=== PATIENT | male | born 1945 | race Caucasian/White ===

== ENCOUNTER → 2022-11-03 10:26 | Outpatient (REF) | payer OTHER, SELFPAY | LOC: WOUND 10:26 | PROVIDERS: ATTENDING PHYSICIAN Surgery; REFERRING PHYSICIAN Nurse Practitioner Family | DX: S51.802A Unspecified open wound of left forearm, initial encounter (principal); S51.801A Unspecified open wound of right forearm, initial encounter; X58.XXXA Exposure to other specified factors, initial encounter; J43.2 Centrilobular emphysema; I27.20 Pulmonary hypertension, unspecified | CPT/HCPCS: 11042; 99202; 99214 ==

== ENCOUNTER → 2023-08-14 09:38 | Outpatient (REF) | payer OTHER, SELFPAY | LOC: HWRCS 09:38 | PROVIDERS: ATTENDING PHYSICIAN Internal Medicine Critical Care Medicine; FAMILY PHYSICIAN Nurse Practitioner Family | DX: R06.02 Shortness of breath (principal) | CPT/HCPCS: 93306 ==

== ENCOUNTER → 2024-01-26 10:04 | Outpatient (REF) | payer OTHER, SELFPAY | LOC: HWRAD 10:04 | PROVIDERS: ATTENDING PHYSICIAN Physician Assistant Medical; FAMILY PHYSICIAN Nurse Practitioner Family | DX: C64.1 Malignant neoplasm of right kidney, except renal pelvis (principal) | CPT/HCPCS: 76775 ==

== ENCOUNTER 2024-07-29 20:15 | Emergency (ER) | payer OTHER, SELFPAY ==
[2024-07-29 20:18] VITALS: BP 135/72
[2024-07-29 20:28] VITALS: BMI 29.9
--- NOTE | 2024-07-29 20:48 | ED.GENMED ---
History of Present Illness
General
Chief Complaint: Male Genito-Urinary Symptoms
Source: patient
Exam Limitations: none
Time Seen by Provider: 07/29/24 20:19
Nursing documentation reviewed up to this point in time: agreed with
History of Present Illness
History of Present Illness:
78-year-old male with past medical history of COPD chronically on 6 L nasal cannula,, previous bladder cancer in the 90s presenting to the emergency department today with concerns of hematuria over the past few hours. Denies significant discomfort
no additional symptoms otherwise. No significant infectious symptoms recently.
Past History
Past History
ED Past Medical History: COPD; Negative CAD, Cancer, CHF, IDDM or NIDDM
ED Past Surgical History: Other (Hernia repair); Negative Cardiac or Cholecystectomy
Social History
Tobacco: Former smoker
Alcohol: None
Drug: None
Personal:
Living: with family
Employment: Employed
Family History
Family History: Other (Noncontributory)
Review of Systems
Review of Systems
Allergies reviewed?: Yes
All Other Systems: ROS reviewed and negative except as documented in HPI and ROS
Phy Exam
Physical Exam
Physical Exam:
GENERAL: Alert , in no apparent distress
EYE: pupils equal and reactive
NECK: Supple, no significant adenopathy.
ENT: o/p clr, mmm.
CARDIAC: Regular rate and rhythm .
LUNGS: Clear breath sounds bilaterally, no acute respiratory distress, no wheezes/rales/rhonchi
ABDOMEN: Soft, without focal tenderness, no r/g, no cvat
NEUROLOGICAL: Alert and oriented, no focal neuro deficits
SKIN: Warm and dry, skin intact.
MUSCULOSKELETAL: No edema, well perfused.
PSYCH: Normal and appropriate interaction.
Course
Orders/Labs/Results
Orders:
Orders
07/29/24 20:37
Bladder Scan- Treatment ONCE
07/29/24 21:10
BMP [Basic Metabolic Panel] Urgent
CBC/With Diff [Complete Blood Count/With Diff] Urgent
Urinalysis Reflex To Culture Urgent
Date Specimen was Collected: 07/29/24
Time Specimen was Collected: 21:03
Urine Microscopic Reflex Cult Urgent
Urine Culture Urgent
ALBA Source: U
Specimen Description:
Date Specimen was Collected: 07/29/24
Time Specimen was Collected: 21:03
07/29/24 22:03
Cephalexin Monohydrate [Keflex] 500 mg PO NOW STA
Abnormal Lab Results
07/29/24
21:10
RBC 4.11 L 10^6/uL
(4.70-6.10)
MCV 106.1 H fL
(80.0-94.0)
MCH 31.9 H pg
(27.0-31.0)
MCHC 30.0 L g/dL
(33.0-37.0)
Absolute Neuts (auto) 7.0 H 10^3/uL
(1.4-6.5)
Absolute Lymphs (auto) 1.0 L 10^3/uL
(1.2-3.4)
Neutrophils % 78.5 H %
(42.2-75.2)
Lymphocytes % 11.1 L %
(20.5-51.1)
Potassium 5.2 H mmol/L
(3.5-5.1)
Chloride 92 L mmol/L
(98-107)
Carbon Dioxide 41 H mmol/L
(22-30)
BUN 29 H mg/dl
(9-20)
Glucose 106 H mg/dl
(70-99)
Urine Ketones 1+ A
(Negative)
Ur Occult Blood Reflex 4+ A
(Negative)
Urine Nitrite (Reflex) Positive A
(Negative)
Urine Bilirubin 1+ A
(Negative)
Leukocyte Esterase Rfl 3+ A
(Negative)
Urine RBC >100 A /HPF
(0-2)
Urine WBC (Reflex) >100 A /HPF
(0-5)
Urine Bacteria (Reflex) Moderate A
(Negative)
Urine Albumin (Reflex) 4+ A
(Neg - Trace)
07/29/24 21:10
07/29/24 21:10
Vital Signs
Initial and Last Documented VS:
Initial Vital Signs
Temp Pulse Resp BP Pulse Ox
98.4 F 78 18 135/72 96
07/29/24 20:18 07/29/24 20:18 07/29/24 20:18 07/29/24 20:18 07/29/24 20:18
Last Documented Vital Signs
Temp Pulse Resp BP Pulse Ox
98.4 F 75 21 122/68 96
07/29/24 20:18 07/29/24 22:00 07/29/24 22:00 07/29/24 22:00 07/29/24 20:18
MDM/Problems Addressed
MDM/Problems Addressed:
78-year-old male presenting to the emergency department today with concerns of hematuria over the past few hours. On arrival here vital signs are normal patient no distress no abdominal pain no reproducible pain. Able to urinate. Urinalysis
potentially consistent with urinary tract infection with positive nitrites leukocyte esterase greater than 100 white blood cells with moderate bacteria. This is potentially explaining patient's hematuria. Plan for treatment with antibiotic and
otherwise close urology follow-up for further assessment . Return precautions given.
*Critical Care Note
Total Time (30-74mins, 75-104mins- exclusive of procedures): Not Applicable
ED Attending Note
-
Portions of this chart may have been created with voice recognition software.� Occasional wrong word or��sound alike� substitutions may have occurred due to the inherent limitations of voice recognition software.
Discharge Plan
Departure
Patient Disposition: Home (Routine Discharge)
Date of Disposition: 07/29/24
Time of Disposition: 22:16
Patient with high blood pressure during this ER visit?: No
Condition: Good
Covid-19: Not Applicable
Discharge Problem:
Acute UTI
Instructions: Blood in the Urine (Hematuria), Adult (DC)
Prescriptions:
No Action
tiotropium bromide [Spiriva with HandiHaler] 18 MCG capsule, w/inhalation device
2 puff inhalation DAILY
budesonide-formoterol [Symbicort] 1 PUFF HFA aerosol inhaler
2 puff inhalation R BID
albuterol sulfate 18 GM HFA aerosol inhaler
8.5 puff PO PRN PRN (Reason: SHORTNESS OF BREATH)
Lotemax 5 ML Drop
5 ml DROP 10/D
Prolensa 5 ML Drop
5 drp intraocular 10/D
ofloxacin 1 DROP drops
1 drp
prednisone 50 mg tablet
50 mg PO DAILY Qty: 2 0RF
Referrals:
Enio Nieto CRNP [Family Provider] -
Lan Araujo MD [Active] - Follow up in 5-7 days
Activity Restrictions/Additional Instructions:
You came to the emergency department today with concerns of hematuria. You may have a UTI. Please take the prescribed antibiotic and follow-up closely with urology. Return for any worsening, new or concerning symptoms.
Interventions
Interventions:
*Risk Screen - Suicide Last Done: 07/29/24 20:25
*General Assessment Last Done: 07/29/24 20:25
*Neglect/Abuse Screening Last Done: 07/29/24 20:25
*ED- Fall Risk Assessment Last Done: 07/29/24 20:25
*ED COVID-19 Vaccine History Last Done: 07/29/24 20:25
ED-Male Genitourinary Assessment Last Done: 07/29/24 20:29
Discharge Date and Time
Print Language: ECUADOREAN
[2024-07-29 21:00] VITALS: BP 145/88
[2024-07-29 21:19] LABS: % Basophils 0.4 % (0-2); % Eosinophils 2.5 % (0-6); % Immature Granulocytes 0.3 % (0-0.5); % Lymphocytes 11.1 % (20.5-51.1); % Monocytes 7.2 % (1.7-9.3); % Neutrophils 78.5 % (42.2-75.2); Absolute Eosinophils 0.2 10^3/uL (0-0.7); Absolute Monocytes 0.6 10^3/uL (0.1-0.6); Hematocrit 43.6 % (39.0-52.0); Hemoglobin 13.1 g/dL (13.0-18.0); Mean Corpuscular Hgb 31.9 pg (27.0-31.0); Mean Corpuscular Volume 106.1 fL (80.0-94.0); Mean Platelet Volume 9.4 fL (7.4-10.4); Nucleated Red Blood Cells % 0 % (-); Platelet Count 214 10^3/uL (130-400); Red Blood Cell Count 4.11 10^6/uL (4.70-6.10); Red Cell Dist. Width 12.1 % (11.5-14.5); White Blood Cell Count 8.9 10^3/uL (4.8-10.8)
[2024-07-29 21:22] LABS: Urine Albumin 4+ (Neg - Trace); Urine Bilirubin 1+ (Negative); Urine Character Cloudy (Clear); Urine Color Brown; Urine Glucose Negative (Negative); Urine Ketone 1+ (Negative); Urine Leukocyte 3+ (Negative); Urine Nitrite Positive (Negative); Urine Occult Blood 4+ (Negative); Urine Urobilinogen 1+ (Neg - 1+); Urine pH 6.5 (5.0-9.0)
[2024-07-29 21:32] LABS: Blood Urea Nitrogen 29 mg/dl (9-20); Calcium 9.1 mg/dl (8.4-10.2); Chloride 92 mmol/L (98-107); Estimated Creatinine Clearance 80 ml/min; Glucose 106 mg/dl (70-99); Potassium 5.2 mmol/L (3.5-5.1); Sodium 139 mmol/L (135-145); eGFR > 60.00
[2024-07-29 21:39] LABS: Urine Bacteria Moderate (Negative); Urine Red Blood Cell >100 /HPF (0-2); Urine Squamous Cell 0-2 /LPF (Few); Urine White Cell >100 /HPF (0-5)
[2024-07-29 21:54] LABS: Carbon Dioxide 41 mmol/L (22-30)
[2024-07-29 22:00] VITALS: BP 122/68
[2024-07-29] MEDS: KEFLEX 500 MG PO (22:19)
== END 2024-07-29 22:45 | disposition home or self-care (01) ==
LOC: EMR 20:15
PROVIDERS: Physician Assistant; EMERGENCY PHYSICIAN Emergency Medicine; FAMILY PHYSICIAN Nurse Practitioner Family
DX: N39.0 Urinary tract infection, site not specified (principal); R31.9 Hematuria, unspecified; J44.9 Chronic obstructive pulmonary disease, unspecified; Z99.81 Dependence on supplemental oxygen; Z85.51 Personal history of malignant neoplasm of bladder; Z87.891 Personal history of nicotine dependence
CPT/HCPCS: 99283; 51798; 80048; 81003; 81015; 85025; 87086

== ENCOUNTER 2024-08-19 21:40 | Inpatient (IN) | payer OTHER, SELFPAY ==
[2024-08-19 14:56] VITALS: BP 153/84
[2024-08-19 15:38] LABS: % Basophils 0.5 % (0-2); % Eosinophils 2.2 % (0-6); % Immature Granulocytes 0.4 % (0-0.5); % Lymphocytes 9.7 % (20.5-51.1); % Monocytes 7.7 % (1.7-9.3); % Neutrophils 79.5 % (42.2-75.2); Absolute Eosinophils 0.2 10^3/uL (0-0.7); Absolute Lymphocytes 0.7 10^3/uL (1.2-3.4); Absolute Monocytes 0.6 10^3/uL (0.1-0.6); Absolute Neutrophils 6.1 10^3/uL (1.4-6.5); Hematocrit 40.8 % (39.0-52.0); Mean Corp Hgb Conc. 29.4 g/dL (33.0-37.0); Mean Corpuscular Hgb 32.8 pg (27.0-31.0); Mean Corpuscular Volume 111.5 fL (80.0-94.0); Nucleated Red Blood Cells % 0 % (-); Platelet Count 292 10^3/uL (130-400); Red Blood Cell Count 3.66 10^6/uL (4.70-6.10); White Blood Cell Count 7.7 10^3/uL (4.8-10.8)
[2024-08-19 15:45] LABS: ALT (SGPT) 10 U/L (0-50); AST (SGOT) 16 U/L (17-59); Albumin 3.7 g/dl (3.5-5.0); Alkaline Phosphatase 35 U/L (38-126); Blood Urea Nitrogen 32 mg/dl (9-20); Calcium 8.9 mg/dl (8.4-10.2); Chloride 97 mmol/L (98-107); Glucose 129 mg/dl (70-99); Potassium 5.3 mmol/L (3.5-5.1); Sodium 143 mmol/L (135-145); Total Bilirubin 0.7 mg/dl (0.2-1.3); Total Protein 6.8 g/dl (6.3-8.2); eGFR 40.25
[2024-08-19 15:55] LABS: Carbon Dioxide 42 mmol/L (22-30)
--- NOTE | 2024-08-19 17:49 | ED.GENMED ---
History of Present Illness
General
Chief Complaint: Fall
Source: patient
Time Seen by Provider: 08/19/24 17:39
History of Present Illness
History of Present Illness:
79-year-old male brought to the emergency room by ambulance after collapsing at home. Patient states he had gone to the bathroom to urinate and while returning he began to feel extremely weak. His legs gave out from under him and he fell onto his
bottom. He did not strike his head. He was unable to get himself off the floor. He continues to feel extremely weak. Patient has a history of COPD for which she is on 6 L of nasal cannula oxygen 24 hours a day. Patient became very hypoxic in
the bathroom out of triage. His tank apparently was running low during the week. Pulse ox was in the 50s. Patient brought back to her room immediately. Now on nasal cannula oxygen from fall oxygen his pulse ox is 96%. Patient noted blood in his
urine when he went to the bathroom just a bit ago. He does not take any oral anticoagulants. He denies any fever or chills. He was recently treated for a urinary tract infection. Patient is known to Dr. Smith. He has a history of bladder
cancer for which she had just 'scraping'.
Past History
Past History
ED Past Medical History: COPD; Negative CAD, Cancer, CHF, IDDM or NIDDM
ED Past Surgical History: Other (Hernia repair); Negative Cardiac or Cholecystectomy
Social History
Tobacco: Former smoker
Alcohol: None
Drug: None
Personal:
Living: with family
Employment: Employed
Family History
Family History: Other (Noncontributory)
Phy Exam
Physical Exam
Physical Exam:
General: Awake, Alert, Oriented X3. No acute distress.
Vitals:
Head: Atraumatic
Eyes: Pupils equal, EOMI
Throat: Airway intact, no exudates
Neck: Trachea midline
Lungs: Clear and equal b/l
Heart: Regular rate, no murmurs
Abd: Soft, suprapubic fullness,, No pulsatile mass
Neuro: Nonfocal
Skin: Warm, dry, no rash
Extremities: pulses equal b/l, no edema
Course
Orders/Labs/Results
Orders:
Orders
08/19/24 15:02
EKG [Electrocardiogram (*1)] Urgent
Reason for Study: Fatigue / Weakness
EKG- Treatment ONCE
08/19/24 15:08
Complete Blood Count/With Diff Urgent
Comprehensive Metabolic Panel Urgent
Creatine Phosphokinase Urgent
Comment: ADD ON
08/19/24 17:39
Add On- LAB Urgent
Tests Added?: CPK
08/19/24 17:42
CR Chest Portable - 1 View Urgent
Comment:
Reason For Exam: sob
Reason Study Needs to be Portable: Unable to Transport
08/19/24 17:45
Bladder Scan- Treatment ONCE
08/19/24 17:48
CT Abd/pel Without Iv Or Oral Urgent
Comment:
Reason For Exam: hematuria, increased creatinine
08/19/24 18:03
Venous Blood Gas Urgent
%Oxygen/Room Air: 6L
08/19/24 18:20
CBI- Treatment PRN
Solution: normal saline
Irrigate to Clear?: Yes
08/19/24 18:46
Urinalysis Reflex To Culture Urgent
Date Specimen was Collected: 08/19/24
Time Specimen was Collected: 18:16
Urine Microscopic Reflex Cult Urgent
Urine Culture Urgent
ALBA Source: U
Specimen Description:
Date Specimen was Collected: 08/19/24
Time Specimen was Collected: 18:16
Abnormal Lab Results
08/19/24 08/19/24 08/19/24
15:08 18:03 18:46
RBC 3.66 L 10^6/uL
(4.70-6.10)
Hgb 12.0 L g/dL
(13.0-18.0)
MCV 111.5 H fL
(80.0-94.0)
MCH 32.8 H pg
(27.0-31.0)
MCHC 29.4 L g/dL
(33.0-37.0)
Absolute Lymphs (auto) 0.7 L 10^3/uL
(1.2-3.4)
Neutrophils % 79.5 H %
(42.2-75.2)
Lymphocytes % 9.7 L %
(20.5-51.1)
VBG pH 7.29 L
(7.32-7.43)
VBG pCO2 89 H* mmHg
(35-48)
VBG HCO3 42.8 H mmol/L
(22-27)
Potassium 5.3 H mmol/L
(3.5-5.1)
Chloride 97 L mmol/L
(98-107)
Carbon Dioxide 42 H mmol/L
(22-30)
BUN 32 H mg/dl
(9-20)
Creatinine 1.7 H mg/dL
(0.7-1.3)
Glucose 129 H mg/dl
(70-99)
AST 16 L U/L
(17-59)
Alkaline Phosphatase 35 L U/L
(38-126)
Creatine Kinase 46 L U/L
(55-170)
Ur Occult Blood Reflex 4+ A
(Negative)
Leukocyte Esterase Rfl 3+ A
(Negative)
Urine RBC >100 A /HPF
(0-2)
Urine WBC (Reflex) 26-30 A /HPF
(0-5)
Urine Bacteria (Reflex) Few A
(Negative)
Urine Albumin (Reflex) 3+ A
(Neg - Trace)
08/19/24 15:08
08/19/24 15:08
Vital Signs
Initial and Last Documented VS:
Initial Vital Signs
Temp Pulse Resp BP Pulse Ox
98.3 F 70 18 153/84 96
08/19/24 14:56 08/19/24 14:56 08/19/24 14:56 08/19/24 14:56 08/19/24 14:56
Last Documented Vital Signs
Temp Pulse Resp BP Pulse Ox
98.3 F 70 17 165/80 96
08/19/24 14:56 08/19/24 19:00 08/19/24 19:00 08/19/24 19:00 08/19/24 19:00
MDM/Problems Addressed
Differential Diagnosis Includes:
Urinary tract infection, hematuria from previous cancer, hematuria from cancer recurrence, hypoxia from COPD
MDM/Problems Addressed:
Patient presents to the emergency room with severe weakness that prompted him to have a episode of collapsing at home. He did not suffer syncope or lose consciousness. Patient has chronic COPD for which he is on 6 L of nasal cannula oxygen. After
arriving in the emergency room he was going to the bathroom and his oxygen tank ran low. He became quite hypoxic prompting him to be quickly brought back to the treatment area. With resumption of oxygen he returned to a normal pulse ox and
mentation. I do not believe there is an acute pulmonary issue but this was rather a reflection of his severe COPD and lack of supplemental oxygen. Venous blood gas was obtained which shows fairly significant CO2 retention but his pH is minimally
low at 7.29. Patient has a normal mental status. In addition the patient developed hematuria. Bladder scan showed that he had about 350 cc of urine left in his bladder after urinating. Three-way Liu was placed and some blood and clots were
obtained. Bladder irrigation was initiated. Irrigation showed some small clots but significant hematuria improved. Labs show that the patient has an elevated BUN and creatinine. His creatinine was 0.8 just 3 weeks ago and is now 1.7. A CT shows
significant left hydronephrosis. There is asymmetric swelling of the bladder wall on the left.
*Radiology
Radiology exam reviewed: preliminary read by ED provider (Chest x-ray) and radiology read reviewed
*Pulse Oximetry
Patient hypoxic: yes
*EKG
Heart Rate: 71
Rate: normal
Rhythm: sinus
QRS Pattern: left vent hypertrophy
Ischemia: non-specific ST changes
*Mat Cutter Interpretation
Rate: normal
Interpretation: normal
Rhythm: sinus
*Critical Care Note
Total Time (30-74mins, 75-104mins- exclusive of procedures): Not Applicable
ED Attending Note
-
Portions of this chart may have been created with voice recognition software.� Occasional wrong word or��sound alike� substitutions may have occurred due to the inherent limitations of voice recognition software.
Discharge Plan
Departure
Patient Disposition: Admit
Date of Disposition: 08/19/24
Time of Disposition: 20:52
Admit to: Med/Surg
Presentation/result/management discussed w/ accepting MD/DO: Hospitalist
Condition: Fair
Discharge Problem:
Acute renal failure (ARF), Acute hyperkalemia, Hydronephrosis of left kidney
Prescriptions:
No Action
No Current Medications
0
Referrals:
Enio Nieto CRNP [Family Provider] -
Interventions
Interventions:
*Risk Screen - Suicide Last Done: 08/19/24 14:56
*General Assessment Last Done: 08/19/24 14:56
*Neglect/Abuse Screening Last Done: 08/19/24 14:56
*ED- Fall Risk Assessment Last Done: 08/19/24 18:04
*ED COVID-19 Vaccine History Last Done: 08/19/24 18:04
Discharge Date and Time
Print Language: TURKMEN
[2024-08-19 18:04] VITALS: BMI 29.0
[2024-08-19 18:12] LABS: Creatine Phosphokinase 46 U/L (55-170)
[2024-08-19 18:14] LABS: Venous Blood Gas B.E. 13.1 mmol/L (-4 to +4); Venous Blood Gas HCO3 42.8 mmol/L (22-27); Venous Blood Gas O2 Sat % 69.9 %; Venous Blood Gas pH 7.29 (7.32-7.43); Venous Blood Gas pO2 38 mmHg (30-50)
[2024-08-19 18:15] LABS: Venous Blood Gas pCO2 89 mmHg (35-48)
[2024-08-19 18:57] VITALS: BP 159/80
[2024-08-19 19:00] VITALS: BP 165/80
[2024-08-19 19:09] LABS: Urine Albumin 3+ (Neg - Trace); Urine Bilirubin Negative (Negative); Urine Character Cloudy (Clear); Urine Color Red; Urine Glucose Negative (Negative); Urine Ketone Negative (Negative); Urine Leukocyte 3+ (Negative); Urine Nitrite Negative (Negative); Urine Occult Blood 4+ (Negative); Urine Specific Gravity 1.015 (<1.030); Urine Urobilinogen 1+ (Neg - 1+)
[2024-08-19 20:27] LABS: Urine Bacteria Few (Negative); Urine Red Blood Cell >100 /HPF (0-2); Urine Squamous Cell 0-2 /LPF (Few); Urine White Cell 26-30 /HPF (0-5)
--- NOTE | 2024-08-19 21:21 | HPS.HSE ---
Family Physician
-
Family Physician: ANDRADE Tyson
Chief Complaint
-
weakness
History of Present Illness
79-year-old male past medical history of bladder cancer in the 90s status post resection, renal cell carcinoma 2-3 years ago status post resection followed at [facility], COPD on 6 L baseline, presenting after collapsing at home. He went to the
bathroom to urinate and while returning he began to feel extremely weak. His legs gave out and he fell onto his butt. He did not hit his head. He was unable to get himself off the floor. While in the emergency room he became very hypoxic. His
oxygen tank was running low during the week. Pulse ox was in the 50s. Patient noted blood in his urine when he went to the bathroom today. Denies fevers or chills.
He was recently treated for urinary tract infection after coming to the emergency room on 07/29 with hematuria and left flank pain. Was treated with Keflex with improvement in hematuria. Urine culture at that time grew Staphylococcus hominis which
was multidrug-resistant.
He again had blood in the urine today. Denies any flank pain, fevers or chills, abdominal pain. Denies any burning or frequency. Denies shortness of breath or cough.
He is a former smoker. Denies alcohol use.
Medical History
Past Medical History
Past Medical History: Reports Other (79-year-old male past medical history of bladder cancer in the 90s status post resection, renal cell carcinoma 2-3 years ago status post resection followed at [facility], COPD on 6 L baseline, presenting after
collapsing at home. He went to the bathroom to urinate and while returning he began to fee)
Past Surgical History: Reports Other (bladder cancer in the 90s status post resection, renal cell carcinoma 2-3 years ago status post resection followed at [facility], COPD on 6 L baseline)
Social History
Tobacco: Former Smoker
Alcohol: None
Drug: None
Family History
Family History: Not pertinent
Allergies / Home Medications
Allergies reflects when Allergies were last updated in [employer].
Home Medications with original date entered in [employer]
Allergy/Medication List:
Allergies
Allergy/AdvReac Type Severity Reaction Status Date / Time
No Known Allergies Allergy Verified 08/19/24 15:01
Home Medications
No Meds [No Current Medications] 08/19/24
Review of Systems
-
History Source: Patient
A 12 point ROS was completed and negative except as noted: Yes
Constitutional: Reports No Symptoms
EENT: Reports No Symptoms
Respiratory: Reports No Symptoms
Cardiac: Reports No Symptoms
Abdomen/GI: Reports No Symptoms
: Reports See HPI
Musculoskeletal: Reports No Symptoms
Skin: Reports No Symptoms
Neurological: Reports No Symptoms
Endocrine: Reports No Symptoms
Hematologic/Lymphatic: Reports No Symptoms
Psych: Reports No Symptoms
Physical Exam
Vital Signs
Vital Signs
Temp Pulse Resp BP Pulse Ox
99.2 F 70 17 165/80 96
08/19/24 20:56 08/19/24 19:00 08/19/24 19:00 08/19/24 19:00 08/19/24 19:00
Physical Exam
General: Well Developed, Well Nourished and No Apparent Distress
HEENT: NormoCephalic, Moist mucous membranes and Atraumatic
Respiratory: Clear
Cardiac: S1/S2 and Regular Rhythm; No Murmur or Rub
GI: Soft, Non Tender, Non Distended and Normal Bowel Sounds; No Organomegaly
Rectal: Deferred by Provider
Musculoskeletal: No Clubbing, No Cyanosis and No Edema
Skin: No Rash
Neuro: Nonfocal/grossly intact
Laboratory Results
-
08/19/24 15:08
08/19/24 15:08
Laboratory Results
Total Bilirubin 0.7 mg/dl (0.2-1.3) 08/19/24 15:08
AST 16 U/L (17-59) L 08/19/24 15:08
ALT 10 U/L (0-50) 08/19/24 15:08
Alkaline Phosphatase 35 U/L (38-126) L 08/19/24 15:08
Data Reviewed
-
Lab Data: Labs Reviewed by me
Old Records: Reviewed
Impression/Plan
-
IMPRESSION:
PLAN:
# Hematuria/left-sided pelvicalyceal/ureter dilation/Urinary bladder wall thickening likely secondary to inadequately treated Staphylococcus hominis UTI versus recurrence of bladder/renal cell cancer
# History of bladder cancer/renal cell carcinoma treated surgically
-Patient had urinary retention of 300 cc, small amount of blood clots in the urine
-Urinalysis showing 26-30 WBC, greater than 100 RBC,
-Liu catheter placed
- CT scan of abdomen pelvis shows lobulated thickening of the left lateral and posterior lateral wall of the bladder concerning for cystitis versus neoplasia/carcinoma, slightly enlarged left external iliac lymph node, dilation of the left
pelvicalyceal system and left ureter extending to the left ureterovesicular junction calculus,
-CBI was started with improvement in hematuria and so was stopped
-Recent urine culture grew Staphylococcus hominis that was multidrug-resistant that was treated with Keflex
-Check repeat urine culture
-Start vancomycin to treat Staphylococcus hominis UTI/and ceftriaxone to cover usual pathogens, de-escalate as urine culture available
-Urology consulted for consideration of cystoscopy with stent
# Acute kidney injury
# Hyperkalemia
-IV fluids
# Chronic hypercarbic respiratory failure secondary to COPD
-Uses 6 L oxygen 24 hours a day
-VBG shows pH of 7.29, PCO2 of 89 consistent with chronic compensated hypercarbic respiratory failure
-Mental status normal without respiratory distress
Former smoker
DNR/DNI
DVT prophylaxis�SCDs
Regular diet
--- NOTE | 2024-08-19 21:39 | PHA.VAN.IN ---
Assessment
- Assessment
Renal Function: Appears elevated from baseline (07/29/24 BASELINE SCR: 0.8)
Concomitant Antimicrobials: ROCEPHIN
- Previous Dosing Experience
Previous Regimen: NONE
Plan
- Plan
Initial / Loading Dose: 1500MG
Maintenance Regimen: DOSING BY RANDOM LEVEL
Monitoring: RANDOM VANCOMYCIN LEVEL 08/20/24 AM
Pharmacokinetics Vancomycin I
- -
Patient Age: 79
Patient Sex: Male
Vancomycin Day #: 1
Indication: Genito-Urinary Tract
Requesting Provider: TANIKA
Height / Weight:
Height 5 ft 11 in
Actual Weight 94.4 kg
Pertinent Past Medical History: PRIOR ADMIT ON 07/29 FOR SAME
- Vital Signs / Lab Results
Temp Pulse Resp BP Pulse Ox
99.2 F 70 17 165/80 96
08/19/24 20:56 08/19/24 19:00 08/19/24 19:00 08/19/24 19:00 08/19/24 19:00
Lab Results - Hematology
08/19/24
15:08
WBC 7.7
Lab Results - Chemistry
08/19/24
15:08
BUN 32 H
Creatinine 1.7 H
Albumin 3.7
Lab Results - Urine
08/19/24
18:46
Urine Nitrite (Reflex) Negative
Leukocyte Esterase Rfl 3+ A
Urine WBC (Reflex) 26-30 A
Ur Squamous Epith Cells 0-2
Urine Bacteria (Reflex) Few A
[2024-08-19] MEDS: ROCEPHIN 1000 MG IV (21:52)
[2024-08-19 23:09] VITALS: BP 148/83
[2024-08-19] MEDS: VANCOCIN 530 MG IV (23:30)
[2024-08-19] MEDS: STERILE WATER FOR INJECTION IV (23:33)
[2024-08-20] MEDS: NSS 1000 IV ×3 (00:03→23:42)
--- NOTE | 2024-08-20 00:27 | TRANSFER ---
Pt arrived to 3W from ED via stretcher. Pulled over to hospital bed. Placed on 6L O2 via nasal cannula. Oriented to room, call hicks within reach, plan of care ongoing.
[2024-08-20 03:35] VITALS: BP 152/81
[2024-08-20 06:01] LABS: Vancomycin Random 14.4 ug/ml
[2024-08-20 06:02] LABS: % Basophils 0.4 % (0-2); % Eosinophils 2.3 % (0-6); % Immature Granulocytes 0.4 % (0-0.5); % Lymphocytes 10.3 % (20.5-51.1); % Monocytes 9.8 % (1.7-9.3); % Neutrophils 76.8 % (42.2-75.2); Absolute Eosinophils 0.2 10^3/uL (0-0.7); Absolute Lymphocytes 0.9 10^3/uL (1.2-3.4); Absolute Monocytes 0.8 10^3/uL (0.1-0.6); Absolute Neutrophils 6.6 10^3/uL (1.4-6.5); Hematocrit 35.2 % (39.0-52.0); Hemoglobin 10.3 g/dL (13.0-18.0); Mean Corp Hgb Conc. 29.3 g/dL (33.0-37.0); Mean Corpuscular Hgb 31.5 pg (27.0-31.0); Mean Corpuscular Volume 107.6 fL (80.0-94.0); Mean Platelet Volume 9.2 fL (7.4-10.4); Nucleated Red Blood Cells % 0 % (-); Platelet Count 273 10^3/uL (130-400); Red Blood Cell Count 3.27 10^6/uL (4.70-6.10); Red Cell Dist. Width 12.1 % (11.5-14.5); White Blood Cell Count 8.6 10^3/uL (4.8-10.8)
[2024-08-20 06:09] LABS: ALT (SGPT) < 10 U/L (0-50); AST (SGOT) 15 U/L (17-59); Albumin 3.1 g/dl (3.5-5.0); Alkaline Phosphatase 31 U/L (38-126); Blood Urea Nitrogen 31 mg/dl (9-20); Calcium 8.3 mg/dl (8.4-10.2); Carbon Dioxide 39 mmol/L (22-30); Chloride 102 mmol/L (98-107); Estimated Creatinine Clearance 35 ml/min; Glucose 94 mg/dl (70-99); Potassium 5.4 mmol/L (3.5-5.1); Sodium 141 mmol/L (135-145); Total Bilirubin 0.6 mg/dl (0.2-1.3); Total Protein 5.7 g/dl (6.3-8.2); eGFR 37.58
[2024-08-20 08:15] VITALS: BP 144/77
--- NOTE | 2024-08-20 09:08 | W.PN.URO.CBU ---
Today's Communication / Plan
-
OP ROOM IF READFY MONDAY
Assessment / Plan
-
WORRISOME MASS BLADDER WITH LYMPH NODE THIS CAN ALLBE BPH WITH J HOOKING OF URETER BUT MORE LIKELY DX IS BLADDER CANCER WITH POSSOIBLE MUSCLE INVASION EVEN METS WILL STABLIZE FROM OTHE R COMORBIDITIES AND IF READY TO OP ROOM MONDAY FOR CYSTO
AND POSBILE TX ANSD JJ STENTING SPOKE WITH PT WHO AGREES WITH PLANS AND UNDERSTANDS ALT TXS AND COMPLOICATIONS
Diagnosis
-
Date of Service: August 20, 2024
-
Patient Diagnosis:gross hematuria and left hydro has h/o bph and renal cell ca and remote h/o tcc none x years Now painless hematuria left bladder wall edema vs tumor vs clot and possible left lymph node SUKHWINDER
Post Op Day:
Subjective
-
feels well no trouble voiding no colic
Objective
-
Vital Signs
Temp Pulse Resp BP Pulse Ox
98.8 F 88 14 144/77 96
08/20/24 08:15 08/20/24 08:15 08/20/24 08:15 08/20/24 08:15 08/20/24 08:15
Intake and Output
08/19/24 08/20/24 08/21/24
06:59 06:59 06:59
Intake Total 240 / 240
Output Total 1350 / 1350
Balance -1110 / -1110
Intake:
Oral fluids 240 / 240
Output:
Urine, Liu 950 / 950
True Urine Output from CBI 400 / 400
Laboratory Results
08/20/24 05:20
08/20/24 05:20
Review of Systems
-
: Bleeding and Dark Urine
Physical Exam
-
General - well developed, well nourished, no acute distress
Chest - clear bilaterally
Abdomen - soft, non-tender, positive bowel sounds, no CVAT, no incisional pain or distention
Genitalia - normal
Rectal - normal
Skin - warm & dry with no rash
Neuro - AOx3, no motor deficits
Extremities - no clubbing, no cyanosis, no matthew
Care Review
Data Reviewed
Discussed with: Hospitalist and Nursing
CT Scan: Image Pers Reviewed
Total Time Spent with Patient (in minutes): 60
--- NOTE | 2024-08-20 09:11 | PHA.VAN.FU ---
Vancomycin Assessment / Plan
- Assessment
Renal Function: Stable
WBC's are: WNL
In the past 24 hrs, patient has been: Afebrile
Concomitant Antimicrobials: ceftriaxone
- Assessment - Therapeutic Drug Monitoring
Random Level: 14.4 - drawn ~6H after 1500mg loading dose
- Dosing Plan
Dosing by Level: Re-dose today (Vanc 1000mg)
- Monitoring Plan
Random Level: 08/21 06
- Follow Up
Pharmacy will continue to follow.
Vancomycin Follow UP
- -
Patient Age: 79
Patient Sex: Male
Vancomycin Day #: 2
Indication: Genito-Urinary Tract
Requesting Provider: Dr. Lane
Pertinent Antimicrobial Allergies:
NKDA
Height / Weight:
Height 5 ft 11 in
Actual Weight 94.4 kg
Pertinent Past Medical History: COPD (home O2), Hx of bladder cancer & RCC
- Vital Signs / Lab Results
Temp Pulse Resp BP Pulse Ox
98.8 F 88 14 144/77 96
08/20/24 08:15 08/20/24 08:15 08/20/24 08:15 08/20/24 08:15 08/20/24 08:15
Lab Results - Hematology
08/19/24 08/20/24
15:08 05:20
WBC 7.7 8.6
Lab Results - Chemistry
08/19/24 08/20/24
15:08 05:20
BUN 32 H 31 H
Creatinine 1.7 H 1.8 H
Estimated Creat Clear 35
Albumin 3.7 3.1 L
Lab Results - Urine
08/19/24
18:46
Urine Nitrite (Reflex) Negative
Leukocyte Esterase Rfl 3+ A
Ur Squamous Epith Cells 0-2
Therapeutic Drug Monitoring
Random Vancomycin 14.4 ug/ml 08/20/24 05:20
--- NOTE | 2024-08-20 11:44 | W.PN.HOSP.TC ---
Today's Communication/Plan
-
See plan
Assessment / Plan
Assessment / Plan
Impression:
Gross hematuria with retention.
Suspected bladder mass/lymphadenopathy/left pelvic calyceal system dilatation with concern for malignancy.
History of bladder CA status post TURBT over 30 years back
SUKHWINDER
Hyperkalemia
Other conditions:
Chronic hypoxic/hypercarbic respiratory failure on home O2 at 6 L.
COPD severe
Chronic compensatory metabolic alkalosis.
Plan:
CT abdomen/pelvis
Liu catheter is present within the bladder. There is lobulated thickening of the left lateral and posterolateral wall the bladder, with main differential considerations of cystitis and neoplasia/carcinoma.
Slightly enlarged left external iliac lymph node, nonspecific, and could be a reactive inflammatory lymph node, but could also be neoplastic.
There is dilation of the left pelvicalyceal system and left ureter, which extends to the left ureterovesical junction, with no evidence for calculus. Obstruction is likely on the basis of the thickened bladder wall.
Diffusely trabeculated bladder with multiple diverticula, and most of these diverticula contain small calculi.
Gross hematuria with urinary retention.
Imaging as above with concern for malignancy.
Maintain Liu catheter.
Urology input noted.
Plan is for cystoscopy tentatively on 08/22.
Trend hemoglobin
Acute kidney injury suspect secondary to retention.
Mild hyperkalemia noted. Continue to trend
Maintain Liu catheter.
Continue IV fluids.
Trend BMP
Concern for UTI
Recent urine culture with Staphylococcus species treated with antibiotics prior to admission.
Afebrile.
Empiric antibiotics vancomycin/ceftriaxone pending repeat cultures
Severe COPD
Chronic hypoxic/hypercarbic respiratory failure on home O2 6 L
Transient hypoxemia prior to arrival while running off oxygen at home
No evidence for distress currently
Remains on 6 L O2 supplementation
Chest x-ray with hyperinflation, mild bilateral interstitial pattern suspect atelectasis
Reports no symptoms suggestive of acute respiratory infection
Continue oxygen supplementation
DuoNebs
Resume LABA, LAMA, inhaled corticosteroids
Volume status compensated
With interstitial pattern on chest x-ray likely atelectasis), check pro CHF BNP.
Recent echo 08/24 with preserved biventricular function and no evidence of valvular abnormalities.
DNR.
DVT prophylaxis mechanical
Avoid heparin products given hematuria
Anticipated Discharge: > 48 hours
Subjective/Interval History
-
Date of Service: August 20, 2024
Objective Data
-
Labs:
Laboratory Results
08/20/24
05:20
WBC 8.6
Hgb 10.3 L
Hct 35.2 L
Plt Count 273
Sodium 141
Potassium 5.4 H
Chloride 102
Carbon Dioxide 39 H
BUN 31 H
Creatinine 1.8 H
Glucose 94
Calcium 8.3 L
Total Bilirubin 0.6
AST 15 L
ALT < 10
Alkaline Phosphatase 31 L
Vital Signs:
Vital Signs
Temp Pulse Resp BP Pulse Ox
98.8 F 88 14 144/77 96
08/20/24 08:15 08/20/24 08:15 08/20/24 08:15 08/20/24 08:15 08/20/24 08:15
I&O
08/19/24 08/20/24 08/21/24
06:59 06:59 06:59
Intake Total 240 / 240
Output Total 1350 / 1350
Balance -1110 / -1110
Physical Exam
-
General: Well Developed and No Apparent Distress
HEENT: Normocephalic, Atraumatic and Moist Mucous Membranes
Respiratory: Clear to Auscultation
Cardiac: Regular Rhythm and S1/S2; Negative Murmur, Rub or Gallop
GI: Soft, Nontender, Nondistended and Normal Bowel Sounds; Negative Organomegaly
Rectal: Deferred by Provider
Musculoskeletal: No Clubbing, No Cyanosis and No Edema
Skin: Negative Rash
Neuro: Nonfocal/Grossly Intact
[2024-08-20] MEDS: VANCOCIN 200 IV (11:59)
[2024-08-20 12:03] VITALS: BP 151/82
[2024-08-20 13:01] LABS: NT-proBNP 1300 pg/ml
[2024-08-20] MEDS: STRIVERDI RESPIMAT 2 PUFF INH (15:36)
[2024-08-20] MEDS: SPIRIVA RESPIMAT 2.5 MCG 2 PUFF INH (15:36)
[2024-08-20 15:48] VITALS: BP 146/88
[2024-08-20] MEDS: FLOVENT 110 MCG INHALER 2 PUFF INH (19:19)
[2024-08-20 19:40] VITALS: BP 147/75
[2024-08-20] MEDS: STERILE WATER FOR INJECTION 10 ML IV (21:56)
[2024-08-20] MEDS: ROCEPHIN 1000 MG IV (21:56)
[2024-08-20 23:15] VITALS: BP 132/83
[2024-08-21 03:34] VITALS: BP 140/63
--- NOTE | 2024-08-21 04:00 | PTCARENOTE ---
While rounding on pt, this RN noted that pt's urine looked more dark red and bloody than earlier in shift. ANDRADE Alvarez notified. This RN asked to message urologist on-call. Urologist ordered for CBI to be restarted on patient. Order for
CBI and Stat H&H placed. Plan of care ongoing.
[2024-08-21 04:03] LABS: Hematocrit 35.3 % (39.0-52.0); Hemoglobin 10.2 g/dL (13.0-18.0)
[2024-08-21 07:00] VITALS: BP 132/74
[2024-08-21 07:10] LABS: % Basophils 0.5 % (0-2); % Eosinophils 2.5 % (0-6); % Immature Granulocytes 0.5 % (0-0.5); % Lymphocytes 11.1 % (20.5-51.1); % Neutrophils 75.4 % (42.2-75.2); Absolute Eosinophils 0.2 10^3/uL (0-0.7); Absolute Lymphocytes 0.9 10^3/uL (1.2-3.4); Absolute Monocytes 0.8 10^3/uL (0.1-0.6); Absolute Neutrophils 6.1 10^3/uL (1.4-6.5); Hematocrit 36.1 % (39.0-52.0); Hemoglobin 10.5 g/dL (13.0-18.0); Mean Corp Hgb Conc. 29.1 g/dL (33.0-37.0); Mean Corpuscular Hgb 31.8 pg (27.0-31.0); Mean Corpuscular Volume 109.4 fL (80.0-94.0); Mean Platelet Volume 9.1 fL (7.4-10.4); Nucleated Red Blood Cells % 0 % (-); Platelet Count 265 10^3/uL (130-400); Red Cell Dist. Width 12.2 % (11.5-14.5)
[2024-08-21 07:40] LABS: Blood Urea Nitrogen 24 mg/dl (9-20); Calcium 8.2 mg/dl (8.4-10.2); Carbon Dioxide 37 mmol/L (22-30); Chloride 103 mmol/L (98-107); Estimated Creatinine Clearance 39 ml/min; Glucose 112 mg/dl (70-99); Potassium 5.1 mmol/L (3.5-5.1); Sodium 141 mmol/L (135-145); eGFR 43.29
--- NOTE | 2024-08-21 08:14 | PHA.VAN.FU ---
Vancomycin Assessment / Plan
- Assessment
Renal Function: SCR Decreasing
WBC's are: WNL
In the past 24 hrs, patient has been: Afebrile
Concomitant Antimicrobials: ceftriaxone
- Assessment - Therapeutic Drug Monitoring
Random Level: 13 - drawn ~19H after previous dose of 1000mg
- Dosing Plan
Dosing by Level: Re-dose today (Vanc 1000mg)
- Monitoring Plan
Random Level: 08/22 06
- Follow Up
Pharmacy will continue to follow.
Vancomycin Follow UP
- -
Patient Age: 79
Patient Sex: Male
Vancomycin Day #: 3
Indication: Genito-Urinary Tract
Requesting Provider: Dr. Lane
Pertinent Antimicrobial Allergies:
NKDA
Height / Weight:
Height 5 ft 11 in
Actual Weight 94.4 kg
Pertinent Past Medical History: COPD (home O2), Hx of bladder cancer & RCC
- Vital Signs / Lab Results
Temp Pulse Resp BP Pulse Ox
97.8 F 98 19 132/74 89
08/21/24 07:00 08/21/24 07:00 08/21/24 07:00 08/21/24 07:00 08/21/24 07:00
Lab Results - Hematology
08/19/24 08/20/24 08/21/24
15:08 05:20 06:41
WBC 7.7 8.6 8.0
Lab Results - Chemistry
08/19/24 08/20/24 08/21/24
15:08 05:20 06:41
BUN 32 H 31 H 24 H
Creatinine 1.7 H 1.8 H 1.6 H
Estimated Creat Clear 35 39
Albumin 3.7 3.1 L
Therapeutic Drug Monitoring
Random Vancomycin 13.0 ug/ml 08/21/24 06:41
[2024-08-21] MEDS: FLOVENT 110 MCG INHALER 2 PUFF INH ×2 (08:22→19:38)
[2024-08-21] MEDS: STRIVERDI RESPIMAT 2 PUFF INH (08:23)
[2024-08-21] MEDS: SPIRIVA RESPIMAT 2.5 MCG 2 PUFF INH (08:23)
[2024-08-21] MEDS: NSS 1000 IV ×2 (09:02→20:52)
[2024-08-21] MEDS: VANCOCIN 200 IV (10:14)
[2024-08-21 11:13] VITALS: BP 130/74
--- NOTE | 2024-08-21 12:36 | W.PN.URO.CBU ---
Today's Communication / Plan
-
for op room lease place sequential teds ..... For today hand irrigate now with several 100s cc in bladder piston syringe irrigate to no more clots then restart cbi but bladder must be full when piston syringe
Assessment / Plan
-
WORRISOME MASS BLADDER WITH LYMPH NODE THIS CAN ALLBE BPH WITH J HOOKING OF URETER BUT MORE LIKELY DX IS BLADDER CANCER WITH POSSOIBLE MUSCLE INVASION EVEN METS WILL STABLIZE FROM OTHE R COMORBIDITIES AND IF READY TO OP ROOM MONDAY FOR CYSTO
AND POSBILE TX ANSD JJ STENTING SPOKE WITH PT WHO AGREES WITH PLANS AND UNDERSTANDS ALT TXS AND COMPLOICATIONS
Diagnosis
-
Date of Service: August 21, 2024
-
Patient Diagnosis:
Post Op Day:
Patient Diagnosis:gross hematuria and left hydro has h/o bph and renal cell ca and remote h/o tcc none x years Now painless hematuria left bladder wall edema vs tumor vs clot and possible left lymph node SUKHWINDER
Post Op Day:
Subjective
-
re bled last pm also weak
Objective
-
Vital Signs
Temp Pulse Resp BP Pulse Ox
98.1 F 96 19 130/74 95
08/21/24 11:13 08/21/24 11:13 08/21/24 11:13 08/21/24 11:13 08/21/24 11:13
Intake and Output
08/20/24 08/21/24 08/22/24
06:59 06:59 06:59
Intake Total 240 / 240 1080 / 1080 120 / 120
Output Total 1350 / 1350 1500 / 1500 -200 / -200
Balance -1110 / -1110 -420 / -420 320 / 320
Intake:
Oral fluids 240 / 240 1080 / 1080 120 / 120
Output:
Urine, Liu 950 / 950 800 / 800
True Urine Output from CBI 400 / 400 700 / 700 -200 / -200
Laboratory Results
08/21/24 06:41
08/21/24 06:41
Review of Systems
-
: Difficulty Voiding and Bleeding
Physical Exam
-
General - well developed, well nourished, no acute distress
Chest - clear bilaterally
Abdomen - soft, non-tender, positive bowel sounds, no CVAT, no incisional pain or distention
Genitalia - normal
Rectal - normal
Skin - warm & dry with no rash
Neuro - AOx3, no motor deficits
Extremities - no clubbing, no cyanosis, no edema
Incision - clean, dry
Dressing - clean, dry, intact
Care Review
Data Reviewed
Discussed with: Nursing and Family
CT Scan: Image Pers Reviewed
[2024-08-21 15:09] VITALS: BP 141/77
--- NOTE | 2024-08-21 15:33 | W.PN.HOSP.TC ---
Today's Communication/Plan
-
CBI
For cystoscopy in a.m.
N.p.o. postmidnight
Empiric antibiotics
Respiratory status stable while on oxygen supplementation
No additional workup required prior to procedure
Assessment / Plan
Assessment / Plan
Impression:
Gross hematuria with retention.
Suspected bladder mass/lymphadenopathy/left pelvic calyceal system dilatation with concern for malignancy.
History of bladder CA status post TURBT over 30 years back
SUKHWINDER
Hyperkalemia
Other conditions:
Chronic hypoxic/hypercarbic respiratory failure on home O2 at 6 L.
COPD severe
Chronic compensatory metabolic alkalosis.
Plan:
CT abdomen/pelvis
Liu catheter is present within the bladder. There is lobulated thickening of the left lateral and posterolateral wall the bladder, with main differential considerations of cystitis and neoplasia/carcinoma.
Slightly enlarged left external iliac lymph node, nonspecific, and could be a reactive inflammatory lymph node, but could also be neoplastic.
There is dilation of the left pelvicalyceal system and left ureter, which extends to the left ureterovesical junction, with no evidence for calculus. Obstruction is likely on the basis of the thickened bladder wall.
Diffusely trabeculated bladder with multiple diverticula, and most of these diverticula contain small calculi.
Gross hematuria with urinary retention.
Imaging as above with concern for malignancy.
Maintain Liu catheter.
Urology input noted.
Plan is for cystoscopy tentatively on 08/22.
Trend hemoglobin
Acute kidney injury suspect secondary to retention.
Mild hyperkalemia noted. Continue to trend
Maintain Liu catheter.
Continue IV fluids.
Trend BMP
Concern for UTI
Recent urine culture with Staphylococcus species treated with antibiotics prior to admission.
Afebrile.
Repeat urine culture with no growth
Empiric antibiotics: Discontinue vancomycin continue ceftriaxone
Severe COPD
Chronic hypoxic/hypercarbic respiratory failure on home O2 6 L
Transient hypoxemia prior to arrival while running off oxygen at home
No evidence for distress currently
Remains on 6 L O2 supplementation
Chest x-ray with hyperinflation, mild bilateral interstitial pattern suspect atelectasis
Reports no symptoms suggestive of acute respiratory infection
Continue oxygen supplementation
DuoNebs
Resume LABA, LAMA, inhaled corticosteroids
Volume status compensated
With interstitial pattern on chest x-ray likely atelectasis), check pro CHF BNP.
Recent echo 08/24 with preserved biventricular function and no evidence of valvular abnormalities.
DNR.
DVT prophylaxis mechanical
Avoid heparin products given hematuria
Anticipated Discharge: > 48 hours
Subjective/Interval History
-
Date of Service: August 21, 2024
Objective Data
-
Labs:
Laboratory Results
08/21/24 08/21/24
03:48 06:41
WBC 8.0
Hgb 10.2 L 10.5 L
Hct 35.3 L 36.1 L
Plt Count 265
Sodium 141
Potassium 5.1
Chloride 103
Carbon Dioxide 37 H
BUN 24 H
Creatinine 1.6 H
Glucose 112 H
Calcium 8.2 L
Vital Signs:
Vital Signs
Temp Pulse Resp BP Pulse Ox
98.0 F 91 19 141/77 95
08/21/24 15:09 08/21/24 15:09 08/21/24 15:09 08/21/24 15:09 08/21/24 15:09
I&O
08/20/24 08/21/24 08/22/24
06:59 06:59 06:59
Intake Total 240 / 240 1080 / 1080 120 / 120
Output Total 1350 / 1350 1500 / 1500 1700 / 1700
Balance -1110 / -1110 -420 / -420 -1580 / -1580
Physical Exam
-
General: Well Developed and No Apparent Distress
HEENT: Normocephalic, Atraumatic and Moist Mucous Membranes
Respiratory: Clear to Auscultation
Cardiac: Regular Rhythm and S1/S2; Negative Murmur, Rub or Gallop
GI: Soft, Nontender, Nondistended and Normal Bowel Sounds; Negative Organomegaly
Rectal: Deferred by Provider
Musculoskeletal: No Clubbing, No Cyanosis and No Edema
Skin: Negative Rash
Neuro: Nonfocal/Grossly Intact
[2024-08-21 19:00] VITALS: BP 137/76
[2024-08-21] MEDS: ROCEPHIN 1000 MG IV (20:53)
[2024-08-21] MEDS: STERILE WATER FOR INJECTION 10 ML IV (20:53)
[2024-08-21 23:00] VITALS: BP 120/66
[2024-08-22] VITALS (10 sets, daily range): BP systolic 122–160; BP diastolic 70–92
[2024-08-22 07:15] LABS: % Basophils 0.4 % (0-2); % Eosinophils 2.6 % (0-6); % Immature Granulocytes 0.8 % (0-0.5); % Lymphocytes 9.9 % (20.5-51.1); % Neutrophils 77.3 % (42.2-75.2); Absolute Eosinophils 0.2 10^3/uL (0-0.7); Absolute Immature Granulocytes 0.1 10^3/uL (0-0.05); Absolute Lymphocytes 0.9 10^3/uL (1.2-3.4); Absolute Monocytes 0.8 10^3/uL (0.1-0.6); Absolute Neutrophils 7.2 10^3/uL (1.4-6.5); Hematocrit 36.1 % (39.0-52.0); Hemoglobin 10.5 g/dL (13.0-18.0); Mean Corp Hgb Conc. 29.1 g/dL (33.0-37.0); Mean Corpuscular Hgb 32.1 pg (27.0-31.0); Mean Corpuscular Volume 110.4 fL (80.0-94.0); Mean Platelet Volume 9.2 fL (7.4-10.4); Nucleated Red Blood Cells % 0 % (-); Platelet Count 265 10^3/uL (130-400); Red Blood Cell Count 3.27 10^6/uL (4.70-6.10); Red Cell Dist. Width 12.2 % (11.5-14.5); White Blood Cell Count 9.3 10^3/uL (4.8-10.8)
[2024-08-22] MEDS: FLOVENT 110 MCG INHALER 2 PUFF INH ×2 (07:33→19:50)
[2024-08-22] MEDS: SPIRIVA RESPIMAT 2.5 MCG 2 PUFF INH (07:34)
[2024-08-22] MEDS: STRIVERDI RESPIMAT 2 PUFF INH (07:34)
[2024-08-22 07:36] LABS: Blood Urea Nitrogen 24 mg/dl (9-20); Calcium 8.6 mg/dl (8.4-10.2); Carbon Dioxide 38 mmol/L (22-30); Chloride 104 mmol/L (98-107); Estimated Creatinine Clearance 39 ml/min; Glucose 121 mg/dl (70-99); Potassium 5.3 mmol/L (3.5-5.1); Sodium 143 mmol/L (135-145); eGFR 43.29
--- NOTE | 2024-08-22 10:08 | CM ---
CM following for discharge planning. Antonio resides with in 2nd floor condo with 13 entry steps into the condo with no steps once inside. Pt on 6L O2 at baseline. Pt for possible cystoscopy today; concern for malignancy.
Plan: CM to coordinate all discharge planning needs.
[2024-08-22] MEDS: LOKELMA 10 GRAM PO (10:21)
[2024-08-22] MEDS: NSS 1000 IV (10:42)
--- NOTE | 2024-08-22 14:34 | W.PN.HOSP.TC ---
Today's Communication/Plan
-
Remains with hematuria while on CBI.
For cystoscopy today.
Creatinine plateaued 1.6
Continue urinary diversion with Liu.
Check urine sodium.
Hyperkalemia K at 5.3. Will be given Lokelma. Follow BMP.
Assessment / Plan
Assessment / Plan
Impression:
Gross hematuria with retention.
Suspected bladder mass/lymphadenopathy/left pelvic calyceal system dilatation with concern for malignancy.
History of bladder CA status post TURBT over 30 years back
SUKHWINDER
Hyperkalemia
Other conditions:
Chronic hypoxic/hypercarbic respiratory failure on home O2 at 6 L.
COPD severe
Chronic compensatory metabolic alkalosis.
Plan:
CT abdomen/pelvis
Liu catheter is present within the bladder. There is lobulated thickening of the left lateral and posterolateral wall the bladder, with main differential considerations of cystitis and neoplasia/carcinoma.
Slightly enlarged left external iliac lymph node, nonspecific, and could be a reactive inflammatory lymph node, but could also be neoplastic.
There is dilation of the left pelvicalyceal system and left ureter, which extends to the left ureterovesical junction, with no evidence for calculus. Obstruction is likely on the basis of the thickened bladder wall.
Diffusely trabeculated bladder with multiple diverticula, and most of these diverticula contain small calculi.
Gross hematuria with urinary retention.
Imaging as above with concern for malignancy.
Maintain Liu catheter.
Urology input noted.
Plan is for cystoscopy tentatively on 08/22.
Trend hemoglobin
Acute kidney injury suspect secondary to retention.
Mild hyperkalemia noted. Continue to trend
Maintain Liu catheter.
Continue IV fluids.
Trend BMP
Concern for UTI
Recent urine culture with Staphylococcus species treated with antibiotics prior to admission.
Afebrile.
Repeat urine culture with no growth
Empiric antibiotics: Discontinue vancomycin continue ceftriaxone
Severe COPD
Chronic hypoxic/hypercarbic respiratory failure on home O2 6 L
Transient hypoxemia prior to arrival while running off oxygen at home
No evidence for distress currently
Remains on 6 L O2 supplementation
Chest x-ray with hyperinflation, mild bilateral interstitial pattern suspect atelectasis
Reports no symptoms suggestive of acute respiratory infection
Continue oxygen supplementation
DuoNebs
Resume LABA, LAMA, inhaled corticosteroids
Volume status compensated
With interstitial pattern on chest x-ray likely atelectasis), check pro CHF BNP.
Recent echo 08/24 with preserved biventricular function and no evidence of valvular abnormalities.
DNR.
DVT prophylaxis mechanical
Avoid heparin products given hematuria
Anticipated Discharge: > 48 hours
Subjective/Interval History
-
Date of Service: August 22, 2024
Objective Data
-
Labs:
Laboratory Results
08/22/24
06:45
WBC 9.3
Hgb 10.5 L
Hct 36.1 L
Plt Count 265
Sodium 143
Potassium 5.3 H
Chloride 104
Carbon Dioxide 38 H
BUN 24 H
Creatinine 1.6 H
Glucose 121 H
Calcium 8.6
Vital Signs:
Vital Signs
Temp Pulse Resp BP Pulse Ox
97.9 F 84 19 132/73 95
08/22/24 10:57 08/22/24 10:57 08/22/24 10:57 08/22/24 10:57 08/22/24 10:57
I&O
08/21/24 08/22/24 08/23/24
06:59 06:59 06:59
Intake Total 1080 / 1080 420 / 420 0 / 0
Output Total 1500 / 1500 4600 / 4600
Balance -420 / -420 -4180 / -4180 0 / 0
Physical Exam
-
General: Well Developed and No Apparent Distress
HEENT: Normocephalic, Atraumatic and Moist Mucous Membranes
Respiratory: Clear to Auscultation
Cardiac: Regular Rhythm and S1/S2; Negative Murmur, Rub or Gallop
GI: Soft, Nontender, Nondistended and Normal Bowel Sounds; Negative Organomegaly
Rectal: Deferred by Provider
Musculoskeletal: No Clubbing, No Cyanosis and No Edema
Skin: Negative Rash
Neuro: Nonfocal/Grossly Intact
--- NOTE | 2024-08-22 14:59 | W.SUR.POST ---
Surgical Immediate Post Op
Note
Pre Op Diagnosis: hematuria probable bladder cancer with lef t hydro and geremias
Post Op Diagnosis: same
Procedure Performed: turbt 7 cm entire keft side bladder with cancer appearing tissue and multiple diverticuli
Primary Surgeon:
flashner
Secondary Surgeons:
Anesthesia: spinal dr osullivan
Estimated Blood [id number]:
Fluids: nss
Drains/Shunts:[address]
Specimens/Cultures:bladder tumor
Doppler/Duplex/Angio (Y/N):
Complications: 0
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
cancer
--- NOTE | 2024-08-22 18:18 | PTCARENOTE ---
Pt maintained CBI this AM. Was sent to OR for operation with bag #24 full. PACU states that bags were restarted after operation with an input of 2250 and 750 left in the bag. Bag count was restarted from here. See CBI charting for amounts.
[2024-08-22] MEDS: STERILE WATER FOR INJECTION 10 ML IV (21:36)
[2024-08-22] MEDS: ROCEPHIN 1000 MG IV (21:36)
[2024-08-22] MEDS: TYLENOL 650 MG PO (23:10)
[2024-08-22 23:51] LABS: Urine Sodium 154 mmol/L (30-90)
[2024-08-23] VITALS (12 sets, daily range): BP systolic 117–186; BP diastolic 67–99; PULSE 2–94; BMI 30.3
[2024-08-23 06:22] LABS: % Basophils 0.5 % (0-2); % Eosinophils 3.6 % (0-6); % Immature Granulocytes 0.5 % (0-0.5); % Lymphocytes 8.5 % (20.5-51.1); % Monocytes 8.5 % (1.7-9.3); % Neutrophils 78.4 % (42.2-75.2); Absolute Basophils 0.1 10^3/uL (0-0.2); Absolute Eosinophils 0.3 10^3/uL (0-0.7); Absolute Immature Granulocytes 0.1 10^3/uL (0-0.05); Absolute Lymphocytes 0.8 10^3/uL (1.2-3.4); Absolute Monocytes 0.8 10^3/uL (0.1-0.6); Absolute Neutrophils 7.4 10^3/uL (1.4-6.5); Hematocrit 34.7 % (39.0-52.0); Hemoglobin 10.1 g/dL (13.0-18.0); Mean Corp Hgb Conc. 29.1 g/dL (33.0-37.0); Mean Corpuscular Hgb 31.9 pg (27.0-31.0); Mean Corpuscular Volume 109.5 fL (80.0-94.0); Mean Platelet Volume 9.7 fL (7.4-10.4); Nucleated Red Blood Cells % 0 % (-); Platelet Count 267 10^3/uL (130-400); Red Blood Cell Count 3.17 10^6/uL (4.70-6.10); Red Cell Dist. Width 12.3 % (11.5-14.5); White Blood Cell Count 9.5 10^3/uL (4.8-10.8)
[2024-08-23 06:50] LABS: Blood Urea Nitrogen 25 mg/dl (9-20); Calcium 8.5 mg/dl (8.4-10.2); Carbon Dioxide 38 mmol/L (22-30); Chloride 102 mmol/L (98-107); Estimated Creatinine Clearance 44 ml/min; Glucose 113 mg/dl (70-99); Potassium 5.3 mmol/L (3.5-5.1); Sodium 141 mmol/L (135-145); eGFR 43.29
[2024-08-23] MEDS: STRIVERDI RESPIMAT 2 PUFF INH (07:16)
[2024-08-23] MEDS: FLOVENT 110 MCG INHALER 2 PUFF INH ×2 (07:16→19:25)
[2024-08-23] MEDS: SPIRIVA RESPIMAT 2.5 MCG 2 PUFF INH (07:16)
[2024-08-23 12:46] LABS: Glucose - Point of Care 144 mg/dl (70-99)
--- NOTE | 2024-08-23 12:50 | W.PN.URO.CBU ---
Today's Communication / Plan
-
KEEP SIMMS TRY AND STOP CBI
Assessment / Plan
-
WORRISOME MASS BLADDER WITH LYMPH NODE AWAIT PATH KEEP SIMMS STOP CBI BUT RESTART PRN HEMATURIA
Diagnosis
-
Date of Service: August 23, 2024
-
Patient Diagnosis:
Post Op Day:
Patient Diagnosis:
Post Op Day:
Patient Diagnosis:gross hematuria due to left lateral wall cancer [ path pending]]]
Post Op Day:
Subjective
-
urine now clear
Objective
-
Vital Signs
Temp Pulse Resp BP Pulse Ox
98.7 F 88 16 134/71 98
08/23/24 11:43 08/23/24 11:43 08/23/24 11:43 08/23/24 11:43 08/23/24 11:43
Intake and Output
08/22/24 08/23/24 08/24/24
06:59 06:59 06:59
Intake Total 420 / 420 200 / 200
Output Total 4600 / 4600 2480 / 2480
Balance -4180 / -4180 -2280 / -2280
Intake:
Oral fluids 420 / 420 0 / 0
IV fluids (Total) 200 / 200
normosol 200 / 200
Output:
Urine, Simms 800 / 800
True Urine Output from CBI 4600 / 4600 1680 / 1680
Laboratory Results
08/23/24 05:21
08/23/24 05:21
Review of Systems
-
: Difficulty Voiding
Physical Exam
-
General - well developed, well nourished, no acute distress
Chest - clear bilaterally
Abdomen - soft, non-tender, positive bowel sounds, no CVAT, no incisional pain or distention
Genitalia - normal
Rectal - normal
Skin - warm & dry with no rash
Neuro - AOx3, no motor deficits
Extremities - no clubbing, no cyanosis, no edema
Incision - clean, dry
Dressing - clean, dry, intact
Care Review
Data Reviewed
Discussed with: Hospitalist and Nursing
[2024-08-23] MEDS: NSS IV (12:51)
--- NOTE | 2024-08-23 12:56 | CON.NEURO ---
Neuro Assessment/Plan
Assessment
episode of unresponsive, aphasia, without any clear lateralizing signs.
symptoms essentially resolved and patient back to baseline;
stroke/TIA would be the less likely diagnosis, with recent surgery not a TNK candidate
initially planned on CTA/perfusion however with rapid improvement, Cre 1.6, I cancelled
ddx would be seizure, hypoxic event, toxic/metabolic
Plan
will check Brain MRI with and w/o contrast and routine EEG
Consultation
Order
Date of Consultation: 08/23/24
Requesting Provider: Ramos Sharpe
Reason for Consult: stroke alert
Subjective/Objective
Subjective Data
Date of Service: August 23, 2024
from h&p:
79-year-old male past medical history of bladder cancer in the 90s status post resection, renal cell carcinoma 2-3 years ago status post resection followed at [place], [facility] on 6 L baseline, presenting after collapsing at home. He went to the
bathroom to urinate and while returning he began to feel extremely weak. His legs gave out and he fell onto his butt. He did not hit his head. He was unable to get himself off the floor. While in the emergency room he became very hypoxic. His
oxygen tank was running low during the week. Pulse ox was in the 50s. Patient noted blood in his urine when he went to the bathroom today. Denies fevers or chills.
He was recently treated for urinary tract infection after coming to the emergency room on 07/29 with hematuria and left flank pain. Was treated with Keflex with improvement in hematuria. Urine culture at that time grew Staphylococcus hominis which
was multidrug-resistant.
He again had blood in the urine today. Denies any flank pain, fevers or chills, abdominal pain. Denies any burning or frequency. Denies shortness of breath or cough.
He is a former smoker. Denies alcohol use.
He was admitted and had surgery yesterday for resection of bladder cancer. stroke alert called 12:33 pm, IQRA 11 am. patient awake, unresponsive, aphasic. after head CT patient symptoms essentially resolved, he has some right leg weakness which he
says is chronic from a bad back, and that he can lift his right leg off the bed on a good day
Objective Data
Vital Signs
Temp Pulse Resp BP Pulse Ox
37.1 C 88 16 134/71 98
08/23/24 11:43 08/23/24 11:43 08/23/24 11:43 08/23/24 11:43 08/23/24 11:43
Lab Results
08/23/24 05:21
08/23/24 05:21
Sodium 141 mmol/L (135-145) 08/23/24 05:21
Potassium 5.3 mmol/L (3.5-5.1) H 08/23/24 05:21
BUN 25 mg/dl (9-20) H 08/23/24 05:21
Glucose 113 mg/dl (70-99) H 08/23/24 05:21
Calcium 8.5 mg/dl (8.4-10.2) 08/23/24 05:21
Vua-V-Nqosklbeobv Pept 1300 pg/ml 08/20/24 05:20
Patient Allergies
No Known Allergies Allergy (Verified 08/19/24 15:01)
CVA Assessment
Onset of Stroke Symptoms
Time pt last seen normal is known: Yes
Date last time pt seen normal: 08/23/24
Time last time pt seen normal: 11:00
NIH Stroke Score
Level of Consciousness: 0 - Alert
LOC Questions: 2-Neither correct
LOC Commands: 1-Performs one correctly
Best Horizontal Gaze: 0-Normal
Visual Garcia: 0=Normal, no visual loss
Facial Palsy: 0=Normal, symmetrical
Motor - Right Arm: 0=No drift 10 seconds
Motor - Left Arm: 0=No drift 10 seconds
Motor - Right Le-No movement
Motor - Left Le-No movement
Limb Ataxia: 0-Absent
Sensation: 2-Severe loss
Best Language: 2-Severe aphasia
Dysarthria: 0-Normal
Extinction and Inattention: 0-No abnormality
NIH Total Score:: 15
Tenecteplase Contraindications
Inclusion and Exclusion criteria reviewed: Yes
Reasons for NON-Tx with Thrombolytics ABSOLUTE Exclusions: Active internal bleeding
Reasons for NON-Tx with Thrombolytics POSSIBLE Exclusions: Major surgery or serious trauma within proceding 14 days
Physical Exam
-
After head CT, AAOx3, speech clear, language intact
VFF, EOMI, face symmetric,
full strength b/l UE and LLE; RLE no antigravity
sensation intact to touch/pin, no extinction
Medications
-
Active Medications
Generic Name Dose Route Start Last Admin
Trade Name Freq PRN Reason Stop Dose Admin
Acetaminophen 650 mg 08/22/24 23:06 08/22/24 23:10
Acetaminophen 325 Mg Tablet PO 09/19/24 23:05 650 mg
Q4HPRN PRN Administration
headache,mild pain,fever>100.4
Albuterol/Ipratropium 3 ml 08/20/24 11:45
Ipratropium 0.5/Albuterol 3 Mg (3 Ml Ampul) INH
R Q4HPRN PRN
wheezing
Protocol
Ceftriaxone Sodium 1,000 mg 08/19/24 22:00 08/22/24 21:36
Ceftriaxone 1000 Mg / 10 Ml Vial IV 1,000 mg
Q24H LINDY Administration
Fluticasone Propionate 2 puff 08/20/24 20:00 08/23/24 07:16
Fluticasone 110mcg Inhaler INH 09/17/24 19:59 2 puff
R BID LINDY Administration
Protocol
Sodium Chloride 1,000 mls @ 75 mls/hr 05/22/25 09:45 08/23/24 12:51
Nss IV Not Given
.[id number] LINDY
Olodaterol 2 puff 08/20/24 12:00 08/23/24 07:16
Olodaterol (Striverdi Respimat) 2.5 Mcg Inhaler INH 09/17/24 11:59 2 puff
R DAILY LINDY Administration
Protocol
Sodium Chloride 0 flush 08/19/24 22:00
Sodium Chloride 0.9% (Flush) Syringe IV 09/16/24 21:59
PER PROTOCOL LINDY
Sterile Water 10 ml 08/19/24 22:00 08/22/24 21:36
Sterile Water For Injection 10 Ml Vial IV 09/16/24 21:59 10 ml
Q24H LINDY Administration
Tiotropium Pelican 2 puff 08/20/24 12:00 08/23/24 07:16
Tiotropium (Spiriva Respimat) 2.5 Mcg Inhaler INH 09/17/24 11:59 2 puff
R DAILY LINDY Administration
Protocol
Home Medications
�Medication �Instructions �Recorded
No Meds [No Current Medications] 08/19/24
[2024-08-23 13:39] LABS: B.E. 9.3 mmol/L; HCO3 39.4 mmol/L (21-28); O2 Saturation % 81.2 % (94-98); pH 7.24 (7.35-7.45)
[2024-08-23 13:41] LABS: PCO2 92 mmHg (35-48); PO2 44 mmHg (83-108)
--- NOTE | 2024-08-23 14:07 | RR ---
A Rapid Response was called on this patient, please see Rapid Response form.
Patient was noted at around 1200 this shift to be unresponsive, lethargic and unable to follow commands. Upon assessment this AM, patient was at baseline, interacting with staff and talking to on the phone. A rapid response was called and ICU
staff with Neurology doctor arrived at bedside. NIH score of 12 was assessed at the time. Pt unable to read the sentences on stroke sheet, follow simple commands and was disoriented to time and place. Pt sent to CAT scan per neurologist. Scans
unremarkable. Blood glucose level 143. BP 140/80. SpO2 94% on 6 L NC. No increased effort to breath noted. He appears comfortable. No pain reported. Vital signs otherwise stable. SCDs intact all shift. CBI running without difficulty at this time.
Hospitalist notified with new orders for bipap when sleeping. Will continue to monitor.
[2024-08-23] MEDS: NSS 1000 IV (14:22)
--- NOTE | 2024-08-23 15:56 | W.PN.HOSP.TC ---
Today's Communication/Plan
-
BiPAP while asleep.
Monitor for oversedation and avoid sedatives
Consider repeat ABG next a.m. as soon as off nightly BiPAP
CBI as per urology
Empiric antibiotics through 08/26
Follow hemoglobin
Follow creatinine and potassium
Assessment / Plan
Assessment / Plan
Impression:
Gross hematuria with retention.
Suspected bladder mass/lymphadenopathy/left pelvic calyceal system dilatation with concern for malignancy.
History of renal cell carcinoma status post partial nephrectomy about 30 years back.
SUKHWINDER
Hyperkalemia
Other conditions:
Chronic hypoxic/hypercarbic respiratory failure on home O2 at 6 L.
COPD severe
Chronic compensatory metabolic alkalosis.
Plan:
CT abdomen/pelvis
Liu catheter is present within the bladder. There is lobulated thickening of the left lateral and posterolateral wall the bladder, with main differential considerations of cystitis and neoplasia/carcinoma.
Slightly enlarged left external iliac lymph node, nonspecific, and could be a reactive inflammatory lymph node, but could also be neoplastic.
There is dilation of the left pelvicalyceal system and left ureter, which extends to the left ureterovesical junction, with no evidence for calculus. Obstruction is likely on the basis of the thickened bladder wall.
Diffusely trabeculated bladder with multiple diverticula, and most of these diverticula contain small calculi.
Gross hematuria with clot retention.
Cystoscopy 08/22 with findings consistent of left lateral wall bladder mass consistent with carcinoma with pending pathology, left hydronephrosis.
Maintain Liu catheter. Continue CBI as per urology
Trend hemoglobin
Acute kidney injury suspect secondary to retention and obstructive uropathy
Mild hyperkalemia noted. Continue to trend
Maintain Liu catheter.
Continue IV fluids.
Trend BMP
Concern for UTI
Recent urine culture with Staphylococcus species treated with antibiotics prior to admission.
Afebrile.
Repeat urine culture with no growth
Empiric antibiotics: Ceftriaxone through 08/26 to complete 7-day course of treatment
Toxic metabolic encephalopathy secondary to hypercarbia
Episode of altered mental status manifested with global aphasia on 08/23
Self-limited episode with no focal findings on exam
CT scan of the head with no acute abnormalities.
ABG at that time consistent with respiratory acidosis and CO2 retention
Initiated on BiPAP while asleep 20/08.
Monitor respiratory and cognitive status closely.
Consider to repeat ABG over the next 24 hours as soon as of nightly BiPAP
Avoid sedatives
Neurology input appreciated to complete neurological workup with MRI and EEG
Severe COPD
Chronic hypoxic/hypercarbic respiratory failure on home O2 6 L
Transient hypoxemia prior to arrival while running off oxygen at home
No evidence for distress currently
Remains on 6 L O2 supplementation
Chest x-ray with hyperinflation, mild bilateral interstitial pattern suspect atelectasis
Reports no symptoms suggestive of acute respiratory infection
Continue oxygen supplementation
DuoNebs
Resume LABA, LAMA, inhaled corticosteroids
Volume status compensated
With interstitial pattern on chest x-ray likely atelectasis), check pro CHF BNP.
Recent echo 08/24 with preserved biventricular function and no evidence of valvular abnormalities.
DNR.
DVT prophylaxis mechanical
Avoid heparin products given hematuria
Disposition: Discussed with family and urology. Patient with advanced bladder carcinoma, clot retention, obstructive uropathy and acute kidney. Definitive treatment would be radical surgery with follow-up systemic chemotherapy. Patient with
advanced COPD O2 dependent remains high risk for surgical intervention. Current plan is to observe and wean off CBI. Follow renal function closely. Consideration of rehab and follow-up with urology as outpatient for further options. Patient may
require transition to palliative care and hospice if choice is not to pursue aggressive treatment.
Anticipated Discharge: > 48 hours
Subjective/Interval History
-
Date of Service: August 23, 2024
Objective Data
-
Labs:
Laboratory Results
05/23/25 05/23/25
05:21 13:28
WBC 9.5
Hgb 10.1 L
Hct 34.7 L
Plt Count 267
HCO3 39.4 H
Sodium 141
Potassium 5.3 H
Chloride 102
Carbon Dioxide 38 H
BUN 25 H
Creatinine 1.6 H
Glucose 113 H
Calcium 8.5
Vital Signs:
Vital Signs
Temp Pulse Resp BP Pulse Ox
97.8 F 86 14 133/67 98
08/23/24 15:33 08/23/24 15:33 08/23/24 15:33 08/23/24 15:33 08/23/24 11:43
I&O
08/22/24 08/23/24 08/24/24
06:59 06:59 06:59
Intake Total 420 / 420 200 / 200
Output Total 4600 / 4600 2480 / 2480
Balance -4180 / -4180 -2280 / -2280
Physical Exam
-
General: Well Developed and No Apparent Distress
HEENT: Normocephalic, Atraumatic and Moist Mucous Membranes
Respiratory: Clear to Auscultation
Cardiac: Regular Rhythm and S1/S2; Negative Murmur, Rub or Gallop
GI: Soft, Nontender, Nondistended and Normal Bowel Sounds; Negative Organomegaly
Rectal: Deferred by Provider
Musculoskeletal: No Clubbing, No Cyanosis and No Edema
Skin: Negative Rash
Neuro: Nonfocal/Grossly Intact
--- NOTE | 2024-08-23 18:17 | PTCARENOTE ---
Urologist in to see pt this afternoon with verbal orders to stop CBI as documented in urology report. CBI stopped and pt tolerating well at this time. Urine draining pink tinged but clear. Bags clamped and capped currently. Plan of care ongoing.
[2024-08-23] MEDS: STERILE WATER FOR INJECTION 10 ML IV ×2 (21:38→22:19)
[2024-08-23] MEDS: ROCEPHIN 1000 MG IV ×2 (21:38)
--- NOTE | 2024-08-23 22:30 | RR ---
A Rapid Response was called on this patient, please see Rapid Response form.
RT reported to RN and WINDOW DISPLAY DESIGNER that pt POX 88% on BIPAP. Pt drowsy, but aox3. PT transferred to IMU, report given to Rekha KAMINSKI.
[2024-08-23 22:32] LABS: Glucose - Point of Care 134 mg/dl (70-99)
[2024-08-23 22:41] LABS: B.E. 8.9 mmol/L; HCO3 38.6 mmol/L (21-28); O2 Saturation % 90.7 % (94-98); pH 7.25 (7.35-7.45)
[2024-08-23 22:44] LABS: PCO2 88 mmHg (35-48); PO2 56 mmHg (83-108)
--- NOTE | 2024-08-23 23:23 | W.PN.UPDATE ---
Update Note
Progress Note Update
~22:30 Respiratory therapist in room, placed patient on BIPAP 15/5, increased O2 to 10L.� Patient pulsox dropped to 78% on BIPAP, increased to 18/8 on 15 L. VS stable:� BP 138/79, HR 80, RR 20. Blood glucose 134.�Patient lethargic, became more
responsive with increase in O2 and higher BIPAP settings. ABG ordered. CBC, BMP and�Mag ordered.�EKG obtained, showed new onset Atrial fibrillation, Cardiology consulted.�Transferred to IMU for closer monitoring. Updated patient's daughter, Denise,
on events and transfer to IMU for closer monitoring.
--- NOTE | 2024-08-23 23:45 | PTCARENOTE ---
Received verbal report from GORDY Magana. Pt arrived to floor on Bipap. Pt is currently 95%. Pt ox3 and drowsy. NSR on monitor with frequent PVCs and PACs. CHG and sequeira wipes completed. Pt resting in bed with call hicks in reach and bed alarm on.
[2024-08-23 23:56] LABS: Hemoglobin 10.4 g/dL (13.0-18.0); Mean Corp Hgb Conc. 28.9 g/dL (33.0-37.0); Mean Corpuscular Hgb 31.5 pg (27.0-31.0); Mean Corpuscular Volume 109.1 fL (80.0-94.0); Mean Platelet Volume 9.2 fL (7.4-10.4); Platelet Count 276 10^3/uL (130-400); Red Cell Dist. Width 12.3 % (11.5-14.5); White Blood Cell Count 8.4 10^3/uL (4.8-10.8)
[2024-08-24] VITALS (24 sets, daily range): BP systolic 107–151; BP diastolic 59–88; PULSE 2–96; BMI 30.3
[2024-08-24 00:06] LABS: Blood Urea Nitrogen 30 mg/dl (9-20); Calcium 8.5 mg/dl (8.4-10.2); Carbon Dioxide 38 mmol/L (22-30); Chloride 104 mmol/L (98-107); Estimated Creatinine Clearance 41 ml/min; Glucose 148 mg/dl (70-99); Magnesium 1.8 mg/dl (1.6-2.3); Potassium 5.2 mmol/L (3.5-5.1); Sodium 142 mmol/L (135-145); eGFR 40.25
[2024-08-24 06:14] LABS: Blood Urea Nitrogen 30 mg/dl (9-20); Calcium 8.4 mg/dl (8.4-10.2); Carbon Dioxide 38 mmol/L (22-30); Chloride 104 mmol/L (98-107); Estimated Creatinine Clearance 44 ml/min; Glucose 110 mg/dl (70-99); Sodium 142 mmol/L (135-145); eGFR 43.29
[2024-08-24 06:32] LABS: % Basophils 0.5 % (0-2); % Eosinophils 4.6 % (0-6); % Immature Granulocytes 0.6 % (0-0.5); % Lymphocytes 10.5 % (20.5-51.1); % Monocytes 9.9 % (1.7-9.3); % Neutrophils 73.9 % (42.2-75.2); Absolute Eosinophils 0.4 10^3/uL (0-0.7); Absolute Immature Granulocytes 0.1 10^3/uL (0-0.05); Absolute Lymphocytes 0.9 10^3/uL (1.2-3.4); Absolute Monocytes 0.8 10^3/uL (0.1-0.6); Absolute Neutrophils 6.3 10^3/uL (1.4-6.5); Hemoglobin 10.1 g/dL (13.0-18.0); Mean Corp Hgb Conc. 28.9 g/dL (33.0-37.0); Mean Corpuscular Hgb 31.7 pg (27.0-31.0); Mean Corpuscular Volume 109.7 fL (80.0-94.0); Mean Platelet Volume 9.1 fL (7.4-10.4); Nucleated Red Blood Cells % 0 % (-); Platelet Count 265 10^3/uL (130-400); Red Blood Cell Count 3.19 10^6/uL (4.70-6.10); Red Cell Dist. Width 12.3 % (11.5-14.5); White Blood Cell Count 8.5 10^3/uL (4.8-10.8)
[2024-08-24] MEDS: FLOVENT 110 MCG INHALER INH (07:39)
[2024-08-24] MEDS: STRIVERDI RESPIMAT INH (07:39)
[2024-08-24] MEDS: SPIRIVA RESPIMAT 2.5 MCG INH (07:39)
[2024-08-24 07:56] LABS: Macrocytosis 2+; Stomatocytes 1+
[2024-08-24 07:57] LABS: Hypochromasia 1+
--- NOTE | 2024-08-24 09:23 | CON.CAR ---
Addendum entered and electronically signed by Bartolo Dee MD 08/24/24 11:05:
I saw and examined the patient.
The CHURNER's note was reviewed and I agree with the note.
77-year-old with O2 dependent COPD, left anterior fascicular block bladder cancer patient had leg weakness and fell without syncope. Apparently his oxygenation was low. Apparently supplemental O2 was running low. We were consulted for suspicion
for A-fib based on ECG. Patient with no palpitations or heart racing no prior history of A-fib. On further review of ECGs and telemetry there is NO clear evidence of atrial fibrillation. ECG in question had a poor baseline which made it more
challenging to evaluate but it appears to be sinus rhythm with PACs rather than true A-fib. Based on the above no other changes in medical therapy recommended. Patient's rhythms have otherwise been stable on telemetry. Patient's respiratory
issues appear to be consistent with his severe COPD. However I would recommend updating his echocardiogram. This can be done on Monday. Otherwise no additional recommendations. Patient will continue to be monitored on telemetry if there is a
change in rhythm I will be happy to reassess.
-Please call if additional assistance required
Original Note:
Consultation
Consultation Request
Date/Time Consultation Requested: 08/23/242238
Date/Time Consultation Performed: 08/24/24922
Requesting Provider: Keisha Robertson
Performing Provider: Taylor ZAFAR for Dr. Dee
Reason for Consultation: concern for AFIB
Medical History
-
Chief Complaint: fall, weakness, hematuria
History of Present Illness:
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 He did not lose consciousness. His supplemental O2 was running low and
sats in 50's in ER until he got back on O2. Otherwise, hematuria was noted and he was seen to have left lateral wall bladder mass consistent with carcinoma and is s/p transurethral resection of bladder tumor, large, 7 cm this admit- path pending. He
was on CBI, now with sequeira, also recent UTI on abx. He had decreased LOC yesterday and neuro on the case- MRI did not show stroke. We are consulted for AFIB. However, I reviewed EKG and telemetry carefully and I do not see afib. I see SR/ST with
PAC's. He is not having palpitations. He is currently on BiPAP. He is in no acute distress.
Past Medical History
Past Medical History: Cancer, COPD and Other (as above)
Social History
Tobacco: Former Smoker
Family History
Family History: Reviewed & Not Pertinent
Allergies / Home Medications
Allergy/AdvReac Type Severity Reaction Status Date / Time
No Known Allergies Allergy Verified 08/19/24 15:01
�Medication �Instructions �Recorded �Confirmed �Type
No Meds [No Current Medications] 08/19/24 08/19/24 History
Review of Systems
-
History Source: Patient
All other systems: Negative unless noted
Constitutional: Other (weakness, hematuria)
Physical Exam
Vital Signs
Temp Pulse Resp BP Pulse Ox
98.7 F 88 20 133/97 90
08/24/24 07:38 08/24/24 07:39 08/24/24 07:39 08/23/24 19:34 08/24/24 07:39
Lab Results
08/24/24 05:47
08/24/24 05:47
Oqb-P-Bdxwdriqkef Pept 1300 pg/ml 08/20/24 05:20
Physical Exam
General: Well Developed, Well Nourished and No Apparent Distress
HEENT: Normocephalic and Anicteric
Respiratory: Other (on BiPAP, diminished lung sounds)
Cardiac: Regular Rhythm
Skin: Warm and Dry
Neuro: Awake and Alert
Psych: Calm
Impression / Plan
-
COPD, severe:
-requiring BiPAP, getting inhaled medical therapy
-management per primary, consider pulm c/s
Decreased LOC episode:
-responding normally at the time of my assessment
-neuro on the case
Bladder mass, hematuria, UTI:
-continue ABX per primary/urology teams
-per urology
-catheter in place
Concern for AFIB:
-I reviewed EKG and telemetry carefully and I see no afib, I see SR/ST with PAC's. No palps. Does not require medical therapy.
Data Reviewed
-
EKG: Tracing Personally Visualized and interpreted (SR with PAC's, baseline artifact)
Radiology: Report Reviewed by me (CXR: Patchy increased reticulonodular and linear densities within both lower lungs, with main differential considerations of pneumonia and/or atelectasis. Probable minimal right pleural effusion.)
Medical Tests (Nuc Med, Echo etc): Report Reviewed by me (echo 08/14/23: Normal biventricular size and systolic function without regional wall motion abnormality. Mild concentric left ventricular hypertrophy. No significant valvular disease. )
Labs: Labs Reviewed by me
--- NOTE | 2024-08-24 10:30 | CM ---
Pt transferred to IMU late last night due to rapid response x2.
CM will continue to follow for all discharge planning needs.
[2024-08-24 11:13] LABS: Venous Blood Gas B.E. 9.3 mmol/L (-4 to +4); Venous Blood Gas HCO3 38.5 mmol/L (22-27); Venous Blood Gas O2 Sat % 99.1 %; Venous Blood Gas pH 7.28 (7.32-7.43); Venous Blood Gas pO2 124 mmHg (30-50)
[2024-08-24 11:18] LABS: Venous Blood Gas pCO2 82 mmHg (35-48)
--- NOTE | 2024-08-24 11:23 | W.PN.URO.CBU ---
Today's Communication / Plan
-
will keep Liu until tomorrow for pt's comfort
Assessment / Plan
-
gross hematuria and left hydroureteronephrosis due to left lateral wall cancer
modest hematuria
Diagnosis
-
Date of Service: August 24, 2024
-
Patient Diagnosis: gross hematuria and left hydroureteronephrosis due to left lateral wall cancer [ path pending]
Post Op Day: 2 s/p TURBT
Subjective
-
in bed
Liu -- does not want it removed today as he cannot get OOB yet
Objective
-
Vital Signs
Temp Pulse Resp BP Pulse Ox
98.7 F 88 20 133/97 90
08/24/24 07:38 08/24/24 07:39 08/24/24 07:39 08/23/24 19:34 08/24/24 07:39
Intake and Output
08/23/24 08/24/24 08/25/24
06:59 06:59 06:59
Intake Total 200 / 200 240 / 240
Output Total 2480 / 2480 1050 / 1050
Balance -2280 / -2280 -810 / -810
Intake:
Oral fluids 0 / 0 240 / 240
IV fluids (Total) 200 / 200
normosol 200 / 200
Output:
Urine, Liu 800 / 800 175 / 175
True Urine Output from CBI 1680 / 1680 725 / 725
True urine output from hand 150 / 150
irrigation
Laboratory Results
08/24/24 05:47
08/24/24 05:47
Physical Exam
-
General -adult male in ICU be with CPAP
Abdomen - soft, non-tender, positive bowel sounds, no distention
Genitalia - Liu with peach-colored urine
Care Review
Data Reviewed
Discussed with: Nursing and Family (at bedside)
[2024-08-24] MEDS: DUONEB 3 ML INH ×3 (12:07→19:35)
--- NOTE | 2024-08-24 12:50 | PTCARENOTE ---
VBG completed- RT d/w provider. Bipap removed to eat/drink brush teeth then placed back on within 40 min. Currently sao2 84-86- RT made aware and present now adjusting bipap. Sleepy, arousable, oriented. Family at bedside.
--- NOTE | 2024-08-24 13:32 | W.PN.HOSP.TC ---
Addendum entered and electronically signed by Francisco Richardson MD 08/24/24 13:39:
Holding heparin drip due to gross hematuria.
Original Note:
Today's Communication/Plan
-
mental status improved; Cont abx for now; CBI removed. Still remains on NIV, with poor oxygenation and hypercarbia despite adjusting NIV settings. Will switch to duonebs, Trial steroids; CXR; LE dopplers; add on proBNP; transfer to ICU; No afib
noted on EKG, can hold on cards consult.
Assessment / Plan
Assessment / Plan
Impression:
Gross hematuria with retention.
Suspected bladder mass/lymphadenopathy/left pelvic calyceal system dilatation with concern for malignancy.
History of renal cell carcinoma status post partial nephrectomy about 30 years back.
SUKHWINDER
Hyperkalemia
Other conditions:
Chronic hypoxic/hypercarbic respiratory failure on home O2 at 6 L.
COPD severe
Chronic compensatory metabolic alkalosis.
Plan:
CT abdomen/pelvis
Liu catheter is present within the bladder. There is lobulated thickening of the left lateral and posterolateral wall the bladder, with main differential considerations of cystitis and neoplasia/carcinoma.
Slightly enlarged left external iliac lymph node, nonspecific, and could be a reactive inflammatory lymph node, but could also be neoplastic.
There is dilation of the left pelvicalyceal system and left ureter, which extends to the left ureterovesical junction, with no evidence for calculus. Obstruction is likely on the basis of the thickened bladder wall.
Diffusely trabeculated bladder with multiple diverticula, and most of these diverticula contain small calculi.
Gross hematuria with clot retention.
Cystoscopy 08/22 with findings consistent of left lateral wall bladder mass consistent with carcinoma with pending pathology, left hydronephrosis.
Maintain Liu catheter. Continue CBI as per urology
Trend hemoglobin
Acute kidney injury suspect secondary to retention and obstructive uropathy
Mild hyperkalemia noted. Continue to trend
Maintain Liu catheter.
Continue IV fluids.
Trend BMP
Concern for UTI
Recent urine culture with Staphylococcus species treated with antibiotics prior to admission.
Afebrile.
Repeat urine culture with no growth
Empiric antibiotics: Ceftriaxone through 08/26 to complete 7-day course of treatment
Toxic metabolic encephalopathy secondary to hypercarbia
Episode of altered mental status manifested with global aphasia on 08/23
Self-limited episode with no focal findings on exam
CT scan of the head with no acute abnormalities.
ABG at that time consistent with respiratory acidosis and CO2 retention
Initiated on BiPAP while asleep 20/08.
Monitor respiratory and cognitive status closely.
Consider to repeat ABG over the next 24 hours as soon as of nightly BiPAP
Avoid sedatives
Neurology input appreciated to complete neurological workup with MRI and EEG
Severe COPD
Chronic hypoxic/hypercarbic respiratory failure on home O2 6 L
Transient hypoxemia prior to arrival while running off oxygen at home
No evidence for distress currently
Remains on 6 L O2 supplementation
Chest x-ray with hyperinflation, mild bilateral interstitial pattern suspect atelectasis
Reports no symptoms suggestive of acute respiratory infection
Continue oxygen supplementation
DuoNebs
Resume LABA, LAMA, inhaled corticosteroids
Volume status compensated
With interstitial pattern on chest x-ray likely atelectasis), check pro CHF BNP.
Recent echo 08/24 with preserved biventricular function and no evidence of valvular abnormalities.
DNR.
DVT prophylaxis mechanical
Avoid heparin products given hematuria
Disposition: Discussed with family and urology. Patient with advanced bladder carcinoma, clot retention, obstructive uropathy and acute kidney. Definitive treatment would be radical surgery with follow-up systemic chemotherapy. Patient with
advanced COPD O2 dependent remains high risk for surgical intervention. Current plan is to observe and wean off CBI. Follow renal function closely. Consideration of rehab and follow-up with urology as outpatient for further options. Patient may
require transition to palliative care and hospice if choice is not to pursue aggressive treatment.
Update 08/25: mental status improved; Cont abx for now; CBI removed. Still remains on NIV, with poor oxygenation and hypercarbia despite adjusting NIV settings. Will switch to duonebs, Trial steroids; CXR; LE dopplers; add on proBNP; transfer to ICU;
No afib noted on EKG, can hold on cards consult.
Total time spent on today's encounter was 51 minutes which included time spent in counseling the patient/family regarding diagnosis and treatment plan as listed above, goals of care, and symptom management. Case was discussed with nursing staff,
specialists, and care coordinators/case management. All labs and imaging personally reviewed by me. Remainder the time spent in detailed review of previous records, lab data, imaging, and other medical provider documentation.
Anticipated Discharge: > 48 hours
Subjective/Interval History
-
Date of Service: August 24, 2024
still requires NIV
Objective Data
-
Labs:
Laboratory Results
08/24/24
05:47
WBC 8.5
Hgb 10.1 L
Hct 35.0 L
Plt Count 265
Sodium 142
Potassium 5.0
Chloride 104
Carbon Dioxide 38 H
BUN 30 H
Creatinine 1.6 H
Glucose 110 H
Calcium 8.4
Vital Signs:
Vital Signs
Temp Pulse Resp BP Pulse Ox
99.8 F 94 25 107/70 84
08/24/24 11:05 08/24/24 12:42 08/24/24 12:42 08/24/24 12:42 08/24/24 12:42
I&O
08/23/24 08/24/24 08/25/24
06:59 06:59 06:59
Intake Total 200 / 200 240 / 240
Output Total 2480 / 2480 1050 / 1050 550 / 550
Balance -2280 / -2280 -810 / -810 -550 / -550
Review of Systems
-
History Source: Patient
All other systems: Not reviewed unless documented
Physical Exam
-
General: Well Developed and No Apparent Distress
HEENT: Normocephalic, Atraumatic and Moist Mucous Membranes
Respiratory: Accessory Resp Muscle Use and Decreased Breath Sounds
Cardiac: Regular Rhythm and S1/S2; Negative Murmur, Rub or Gallop
GI: Soft, Nontender, Nondistended and Normal Bowel Sounds; Negative Organomegaly
Rectal: Deferred by Provider
Musculoskeletal: No Clubbing, No Cyanosis and No Edema
Skin: Negative Rash
Neuro: Nonfocal/Grossly Intact
Data Reviewed
-
CT Scan: Report Reviewed by me
MRI: Report Reviewed by me
Labs: Labs Reviewed by me
[2024-08-24] MEDS: SOLU-MEDROL PF 40 MG IV (13:44)
[2024-08-24 13:46] LABS: B.E. 10.8 mmol/L; O2 Saturation % 99.4 % (94-98); PO2 108 mmHg (83-108); pH 7.33 (7.35-7.45)
[2024-08-24 13:48] LABS: PCO2 74 mmHg (35-48)
[2024-08-24 14:03] LABS: NT-proBNP 1840 pg/ml
--- NOTE | 2024-08-24 14:11 | PTCARENOTE ---
ABGs, PCXR completed. RT placed pt on NIV, [id number]%x Epap8, tolerating sao2 98%. AAOx3. Family had to leave - Denise (daughter) is primary contact in chart. ICU notified awaiting bed placement.
[2024-08-24] MEDS: SODIUM CHLORIDE 3% FOR INHALATION 1 VIAL INH ×2 (14:53→19:36)
[2024-08-24 15:12] LABS: Normal RBC Morphology No
--- NOTE | 2024-08-24 16:39 | PTCARENOTE ---
Report to [facility] transferred to [id number] on NIV.
--- NOTE | 2024-08-24 16:40 | CON.INTV ---
Consultation
Consultation Request
Date/Time Consultation Requested: 08/24/2024
Date/Time Consultation Performed: 08/24/2024
Requesting Provider: kandy Richardson
Performing Provider: Cielo Bloom
Reason for Consultation: Respiratory failure
Medical History
-
Chief Complaint: Hypoxia
History of Present Illness:
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 Patient was noted to have
acute kidney injury, hematuria during this admission and had a resection of lateral wall tumor of the bladder suggestive of underlying carcinoma. Today, patient was noted to be hypoxic with decreased mental alertness and urgent critical care
consultation was requested. Patient was evaluated in the intermediate unit where he was noted to be hypoxic which improved with supplemental oxygen as well as increasing EPAP setting on noninvasive ventilation. He was protecting his airways hence
noninvasive ventilation was continued and patient was transferred to the ICU. His mental status significantly improved and he was continued on V60. Bottom Loader consultation was requested for further input.
Past Medical History: Reports Other (79-year-old male past medical history of bladder cancer in the 90s status post resection, renal cell carcinoma 2-3 years ago status post resection followed at [facility], COPD on 6 L baseline, presenting after
collapsing at home. He went to the bathroom to urinate and while returning he began to fee)
Past Surgical History: Reports Other (bladder cancer in the 90s status post resection, renal cell carcinoma 2-3 years ago status post resection followed at [facility], COPD on 6 L baseline)
Social History
Tobacco: Former Smoker
Alcohol: None
Drug: None
Family History
Family History: Not pertinent
Allergies / Home Medications
Allergies / Home Medications
Allergies
Allergy/AdvReac Type Severity Reaction Status Date / Time
No Known Allergies Allergy Verified 08/19/24 15:01
Home Medications
�Medication �Instructions �Recorded �Confirmed �Last Taken �Type
No Meds [No Current Medications] 08/19/24 08/19/24 Unknown History
Review of Systems
Vitals / Labs / Diagnostic Testing
Vital Signs
Temp Pulse Resp BP Pulse Ox
98.8 F 84 18 120/88 98
08/24/24 16:37 08/24/24 14:58 08/24/24 14:58 08/24/24 14:00 08/24/24 14:58
Lab Data
08/24/24 05:47
08/24/24 05:47
Laboratory Results
08/23/24 08/24/24
22:31 13:37
pH 7.25 L 7.33 L
pCO2 88 H* 74 H*
pO2 56 L* 108
HCO3 38.6 H 39.0 H
O2 Delivery Level
Diagnostic Testing:
Physical Exam
-
HEENT: Normocephalic
Cardiovascular: S1/S2
Respiratory: Clear and Other (Few inspiratory Rales in posterior lower lobes. Overall decreased air entry bilaterally)
GI: Soft and Non Distended
Neurology: Other (Patient was initially drowsy, on reevaluation in ICU after BiPAP therapy he was awake alert and interactive, significantly improved mental status)
Skin: Warm
General: Comfortable
Assessment
-
#1. Acute on chronic hypoxic and hypercapnic respiratory failure.
- Suspect bilateral pleural effusion and bilateral lower lobe atelectasis, more on the right has contributed to further decreased ventilation with worsening hypercapnia. pCO2 noted to be 92.
- Patient was switched to V60/AVAPS, tidal volume 550, backup rate 16, EPAP was increased to 8 along with supplemental oxygen with improved oxygen saturation
- Follow-up blood gas improved 7.33/70/108
- Avoid sedating medication. Continue nightly BiPAP as well as anytime patient naps.
- Follow-up exam in ICU, patient significantly more alert, awake and interactive. Will give a BiPAP break for an hour. Continue supplemental O2 as needed
#2. Acute encephalopathy, metabolic, related to CO2 narcosis.
- Patient has baseline compensated hypercapnia around 70s. Likely related to underlying severe COPD as well as suspected sleep apnea
- Acute worsening noted likely related to atelectasis, volume overload as well as recent anesthesia for surgical procedure
- Responded well to noninvasive bilevel ventilation with significant improvement in mental status along with improved CO2.
- Continue bronchodilation, diuresis as well as AVAPS support. Once patient was fully awake and alert, he was pushing to get the BiPAP removed.
#3. History of Severe COPD with chronic hypercapnia, oxygen dependent. (Spirometry 03/17/2023. FEV1 0.58L, 20% with FEV1/FVC 26)
- Patient does not appear to have active wheezing during exam and current presentation not consistent with COPD exacerbation
- In view of decreased mentation, switch to DuoNeb and budesonide to continue triple therapy for now
- Hold off additional steroids or antibiotics from pulmonary perspective
- Severe underlying centrilobular emphysema
#4. Suspect underlying ESTEFANI.
- Patient has never been diagnosed with sleep apnea however reported increased confusion particularly in the morning noted per family members
- With baseline chronic hypercapnia and no witnessed acute on chronic hypercapnia I suspect patient has underlying sleep disordered breathing
- Outpatient sleep study
#5. Bibasilar atelectasis and possibly pleural effusion
- Start 3% saline nebulized twice daily as I suspect patient has right lower lobe collapse
- Chest physical therapy
- Positive pressure ventilation, also incentive spirometry
- Start Lasix 40 mg IV twice daily. Elevated BNP, suspect patient might have concomitant underlying heart failure with preserved ejection fraction
#6. SUKHWINDER with mild hyperkalemia.
- With hydronephrosis on left side on admission, suspect obstructive uropathy
- Elevated proBNP, bilateral pleural effusion noted, suspect volume overload
- Start Lasix 40 mg IV twice daily and monitor
other medical diagnoses:
- Left lateral wall bladder mass, consistent with cancer, s/p transurethral resection with hematuria and clot retention
- Left hydronephrosis
DVT prophylaxis with SCDs
Critical Care time 70 mins -- The patient is admitted for acute critical illness for the treatment of vital organ failure and/or prevention of further life-threatening conditions. Total care includes time spent in review of history, physical exam,
medications, hemodynamic/ventilator parameters, laboratory data, imaging and discussion with house staff, pharmacy, respiratory therapy, load haul dump operator, and nursing.
--- NOTE | 2024-08-24 17:48 | PTCARENOTE ---
17:00 patient transfer from IMU due to increase oxygen requirements. Currently on Non- invective . 20/11/89%
AAO x3. taking off NIM to 6L pt via nasal canula
[2024-08-24] MEDS: LASIX 40 MG IV (18:19)
[2024-08-24] MEDS: PULMICORT 0.5 MG INH (19:35)
--- NOTE | 2024-08-24 19:41 | PTCARENOTE ---
Patient received in bed with his eyes closed. Woke up to verbal command. The patient is AAOx3 and able to make his needs known. No verbalization of pain at this time. Plan of care for the shift reviewed with the patient. NSR on the monitor . Trace
edema to bilateral lower extremities. + pulses throughout. Crackles to bases. Occasional nonproductive cough. SpO2 at 100 % on 6L/o2 nc. + BS. Abdomen is round and obese. Indwelling sequeira catheter is draining small amount of urine. Safety measures
maintained. RT at the bedside. Call hicks and personal belongings are within reach.
[2024-08-25] VITALS (19 sets, daily range): BP systolic 92–147; BP diastolic 54–119; BMI 30.1
[2024-08-25] MEDS: HALDOL 1 MG IV (00:34)
--- NOTE | 2024-08-25 00:37 | PTCARENOTE ---
Patient is confused and pulled off his NIV mask, took off his gown, and pulling at his IV and sequeira catheter. Reoriented and redirected the patient without success. Multiple RNs in to assist. Patient remains confused and pulling at his NIV mask.
Burt Cho made aware. Haldol 1 mg IV ordered and administered. HR 92, SpO2 @ 98%, RR 18.
[2024-08-25 04:34] LABS: B.E. 9.8 mmol/L; PO2 243 mmHg (83-108)
[2024-08-25 04:35] LABS: O2 Therapy 24/8 WITH100%
[2024-08-25 04:36] LABS: HCO3 42.9 mmol/L (21-28); PCO2 > 115 mmHg (35-48); pH 7.11 (7.35-7.45)
--- NOTE | 2024-08-25 04:59 | PTCARENOTE ---
Patient reassessed, awakes to tactile stimuli. ABG resulted and Burt Cho made aware. ANDRADE Cho and RT Mariposa are at the bedside. ECG completed. Labs drawn and sent.
[2024-08-25 05:13] LABS: Hematocrit 34.4 % (39.0-52.0); Hemoglobin 9.9 g/dL (13.0-18.0); Mean Corp Hgb Conc. 28.8 g/dL (33.0-37.0); Mean Corpuscular Hgb 31.8 pg (27.0-31.0); Mean Corpuscular Volume 110.6 fL (80.0-94.0); Mean Platelet Volume 9.5 fL (7.4-10.4); Platelet Count 269 10^3/uL (130-400); Red Blood Cell Count 3.11 10^6/uL (4.70-6.10); Red Cell Dist. Width 12.3 % (11.5-14.5); White Blood Cell Count 8.9 10^3/uL (4.8-10.8)
[2024-08-25 05:30] LABS: ALT (SGPT) < 10 U/L (0-50); AST (SGOT) 18 U/L (17-59); Albumin 3.2 g/dl (3.5-5.0); Alkaline Phosphatase 29 U/L (38-126); Blood Urea Nitrogen 33 mg/dl (9-20); Calcium 8.9 mg/dl (8.4-10.2); Chloride 100 mmol/L (98-107); Estimated Creatinine Clearance 41 ml/min; Glucose 156 mg/dl (70-99); Potassium 5.7 mmol/L (3.5-5.1); Sodium 142 mmol/L (135-145); Total Bilirubin 0.4 mg/dl (0.2-1.3); Total Protein 6.1 g/dl (6.3-8.2); eGFR 40.25
[2024-08-25 05:43] LABS: Carbon Dioxide 35 mmol/L (22-30)
[2024-08-25 05:59] LABS: O2 Saturation % 99.6 % (94-98); PO2 113 mmHg (83-108); pH 7.25 (7.35-7.45)
[2024-08-25 06:00] LABS: HCO3 41.2 mmol/L (21-28); PCO2 94 mmHg (35-48)
[2024-08-25 06:14] LABS: Glucose - Point of Care 145 mg/dl (70-99)
[2024-08-25] MEDS: DEXTROSE 50% SYRINGE 25 GRAMS IV (06:17)
[2024-08-25] MEDS: NOVOLIN R 10 UNITS IV (06:21)
--- NOTE | 2024-08-25 06:27 | PTCARENOTE ---
Pt's Potassium is 5.7. Dextrose 50% syringe 25 grams Iv and Insulin 10 units IV administered. Pt's BG 145.
[2024-08-25] MEDS: DUONEB 3 ML INH ×4 (07:17→20:16)
[2024-08-25] MEDS: PULMICORT 0.5 MG INH ×2 (07:17→20:16)
[2024-08-25] MEDS: SODIUM CHLORIDE 3% FOR INHALATION 1 VIAL INH ×3 (07:17→20:16)
--- NOTE | 2024-08-25 08:32 | W.PN.INTV ---
Today's Communication / Plan
Recommendations
- Continue AVAPS nightly. During daytime continue positive pressure ventilation for 2 hours followed by 4-hour break.
- Serial VBG/ABG
- Continue diuresis and monitor renal function
- Chest x-ray in a.m.
- Goals of care discussions considering patient is DNR/DNI and also does not like to we are the BiPAP mask
Assessment
-
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 Patient was noted to have
acute kidney injury, hematuria during this admission and had a resection of lateral wall tumor of the bladder suggestive of underlying carcinoma. Today, patient was noted to be hypoxic with decreased mental alertness and urgent critical care
consultation was requested. Patient was evaluated in the intermediate unit where he was noted to be hypoxic which improved with supplemental oxygen as well as increasing EPAP setting on noninvasive ventilation. He was protecting his airways hence
noninvasive ventilation was continued and patient was transferred to the ICU. His mental status significantly improved and he was continued on V60. Grocery Store Manager consultation was requested for further input.
08/25. Overnight patient started refusing AVAPS, developed worsening hypercapnia and had to be placed back on AVAPS with gradual improvement. MAP this morning 78, saturating 96% on 60% FiO2. Patient currently on VC 60, tidal volume 550, backup
respiratory rate 16, EPAP of 8. Fluid balance, -1. 9 L
#1. Acute on chronic hypoxic and hypercapnic respiratory failure.
- Suspect bilateral pleural effusion and bilateral lower lobe atelectasis, more on the right has contributed to further decreased ventilation with worsening hypercapnia. pCO2 improving with noninvasive ventilation
- Patient was switched to V60/AVAPS, tidal volume 550, backup rate 16, EPAP was increased to 8 along with supplemental oxygen with improved oxygen saturation
- Follow-up blood gas improved. Will continue nightly noninvasive positive pressure ventilation and during daytime will give 4-hour break followed by 2-hour ventilation.
- Avoid sedating medication.
#2. Acute encephalopathy, metabolic, related to CO2 narcosis.
- Patient has baseline compensated hypercapnia around 70s. Likely related to underlying severe COPD as well as suspected sleep apnea
- Acute worsening noted likely related to atelectasis, volume overload as well as recent anesthesia for surgical procedure
- Responded well to noninvasive bilevel ventilation with significant improvement in mental status along with improved CO2.
- Continue bronchodilation, diuresis as well as AVAPS support.
- Patient does not like to wear the BiPAP mask which will be an ongoing challenge.
- Follow-up chest x-ray shows improving lower lobe atelectasis with chest physical therapy, positive pressure ventilation as well as hypertonic saline nebulization.
#3. History of Severe COPD with chronic hypercapnia, oxygen dependent. (Spirometry 03/17/2023. FEV1 0.58L, 20% with FEV1/FVC 26)
- Patient does not appear to have active wheezing during exam and current presentation not consistent with COPD exacerbation
- In view of decreased mentation, switched to DuoNeb and budesonide to continue triple therapy for now
- Hold off additional steroids or antibiotics from pulmonary perspective
- Severe underlying centrilobular emphysema
#4. Suspect underlying ESTEFANI.
- Patient has never been diagnosed with sleep apnea however reported increased confusion particularly in the morning noted per family members
- With baseline chronic hypercapnia and no witnessed acute on chronic hypercapnia I suspect patient has underlying sleep disordered breathing
- Outpatient sleep study
#5. Bibasilar atelectasis and possibly pleural effusion
- Lower lobe atelectasis improving with hypertonic saline as well as chest PT with positive pressure ventilation
- Chest physical therapy
- Positive pressure ventilation, also incentive spirometry
- Continue Lasix 40 mg IV twice daily. Suspect underlying heart failure with preserved ejection fraction. Elevated BNP noted along with bilateral pleural effusions.
#6. SUKHWINDER with mild hyperkalemia.
- With hydronephrosis on left side on admission, suspect obstructive uropathy
- Elevated proBNP, bilateral pleural effusion noted, suspect volume overload
- Continue diuresis and monitor
- Acidosis also increases hyperkalemia. Continue Lasix and monitor
other medical diagnoses:
- Left lateral wall bladder mass, consistent with ?cancer, s/p transurethral resection with hematuria and clot retention. Final pathology pending
- Left hydronephrosis
DVT prophylaxis with SCDs
Critical Care time 48 mins -- The patient is admitted for acute critical illness for the treatment of vital organ failure and/or prevention of further life-threatening conditions. Total care includes time spent in review of history, physical exam,
medications, hemodynamic/ventilator parameters, laboratory data, imaging and discussion with house staff, pharmacy, respiratory therapy, fire prevention officer, and nursing.
Subjective Dataa
Subjective Data
Date of Service:
Date of Service: August 25, 2024
Subjective:
Patient currently on AVAPS, wakes up with little stimulation.
Review of Systems
Genitourinary: Other (No reported chest pain or shortness of breath.)
Objective Data
Data Reviewed
Vital Signs / I&O / Oxygen:
Vital Signs
Temp Pulse Resp BP Pulse Ox
98.6 F 70 22 120/87 96
08/25/24 07:19 08/25/24 07:22 08/25/24 07:22 08/25/24 06:00 08/25/24 07:22
Intake and Output
08/24/24 08/25/24 08/26/24
06:59 06:59 06:59
Intake Total 240 / 240 650 / 650
Output Total 1050 / 1050 2550 / 2550
Balance -810 / -810 -1900 / -1900
SaO2 [NIV (Non Invasive 97
Ventilation)]
SaO2 96
Nasal Cannula flow liters per 6
minute
Physical Exam
General: Comfortable
HEENT: Normocephalic
Cardiovascular: S1-S2
Respiratory: Clear and Non-Labored Respirations
GI: Soft and Non Distended
Neurology: Other (Drowsy but wakes up with little stimulation)
Skin: Warm
Labs/Micro/Reports
Lab Data
08/25/24 04:44
Laboratory Results
08/24/24 08/25/24 08/25/24
13:37 04:23 05:52
pH 7.33 L 7.11 L* 7.25 L
pCO2 74 H* > 115 H* 94 H*
pO2 108 243 H 113 H
HCO3 39.0 H 42.9 H* 41.2 H*
O2 Delivery Level 24/8 unna947%
--- NOTE | 2024-08-25 09:06 | CM ---
Patient transferred to ICU. Patient currently on NIV mask. CM will follow for discharge planning needs.
Plan; TBD; pending medical treatment plan
[2024-08-25] MEDS: LASIX 40 MG IV ×2 (10:43→16:02)
--- NOTE | 2024-08-25 12:21 | W.PN.HOSP.TC ---
Today's Communication/Plan
-
Aeration improving
Continue BiPAP.
Patient poor candidate for bronchoscopy as goals of care reflect DNR/DNI and if requiring bronchoscopy to improve aeration, most likely requiring mechanical ventilation.
Goals of care ongoing.
Trial IV Lasix.
Maintain Liu
Abx
Assessment / Plan
Assessment / Plan
Impression:
Gross hematuria with retention.
Suspected bladder mass/lymphadenopathy/left pelvic calyceal system dilatation with concern for malignancy.
History of renal cell carcinoma status post partial nephrectomy about 30 years back.
SUKHWINDER
Hyperkalemia
Other conditions:
Acute on Chronic hypoxic/hypercarbic respiratory failure on home O2 at 6 L.
COPD severe
Chronic compensatory metabolic alkalosis.
Plan:
CT abdomen/pelvis
Liu catheter is present within the bladder. There is lobulated thickening of the left lateral and posterolateral wall the bladder, with main differential considerations of cystitis and neoplasia/carcinoma.
Slightly enlarged left external iliac lymph node, nonspecific, and could be a reactive inflammatory lymph node, but could also be neoplastic.
There is dilation of the left pelvicalyceal system and left ureter, which extends to the left ureterovesical junction, with no evidence for calculus. Obstruction is likely on the basis of the thickened bladder wall.
Diffusely trabeculated bladder with multiple diverticula, and most of these diverticula contain small calculi.
Gross hematuria with clot retention.
Cystoscopy 08/22 with findings consistent of left lateral wall bladder mass consistent with carcinoma with pending pathology, left hydronephrosis.
Maintain Liu catheter. Continue CBI as per urology
Trend hemoglobin
Acute kidney injury suspect secondary to retention and obstructive uropathy
Mild hyperkalemia noted. Continue to trend
Maintain Liu catheter.
Continue IV fluids.
Trend BMP
Concern for UTI
Recent urine culture with Staphylococcus species treated with antibiotics prior to admission.
Afebrile.
Repeat urine culture with no growth
Empiric antibiotics: Ceftriaxone through 08/26 to complete 7-day course of treatment
Toxic metabolic encephalopathy secondary to hypercarbia
Episode of altered mental status manifested with global aphasia on 08/23
Self-limited episode with no focal findings on exam
CT scan of the head with no acute abnormalities.
ABG at that time consistent with respiratory acidosis and CO2 retention
Initiated on BiPAP while asleep 20/08.
Monitor respiratory and cognitive status closely.
Consider to repeat ABG over the next 24 hours as soon as of nightly BiPAP
Avoid sedatives
Neurology input appreciated to complete neurological workup with MRI and EEG
Severe COPD
Acute on Chronic hypoxic/hypercarbic respiratory failure on home O2 6 L
Transient hypoxemia prior to arrival while running off oxygen at home
No evidence for distress currently
Remains on 6 L O2 supplementation
Chest x-ray with hyperinflation, mild bilateral interstitial pattern suspect atelectasis
Reports no symptoms suggestive of acute respiratory infection
Continue oxygen supplementation
DuoNebs
Resume LABA, LAMA, inhaled corticosteroids
Volume status compensated
With interstitial pattern on chest x-ray likely atelectasis), check pro CHF BNP.
Recent echo 08/24 with preserved biventricular function and no evidence of valvular abnormalities.
DNR.
DVT prophylaxis mechanical
Avoid heparin products given hematuria
Disposition: Discussed with family and urology. Patient with advanced bladder carcinoma, clot retention, obstructive uropathy and acute kidney. Definitive treatment would be radical surgery with follow-up systemic chemotherapy. Patient with
advanced COPD O2 dependent remains high risk for surgical intervention. Current plan is to observe and wean off CBI. Follow renal function closely. Consideration of rehab and follow-up with urology as outpatient for further options. Patient may
require transition to palliative care and hospice if choice is not to pursue aggressive treatment.
Update 08/25: mental status improved; Cont abx for now; CBI removed. Still remains on NIV, with poor oxygenation and hypercarbia despite adjusting NIV settings. Will switch to duonebs, Trial steroids; CXR; LE dopplers; add on proBNP; transfer to ICU;
No afib noted on EKG, can hold on cards consult.
Update 08/26: Still requiring BiPAP. Atelectasis slowly improving with mild improvement in aeration. Continue BiPAP. Patient poor candidate for bronchoscopy as goals of care reflect DNR/DNI and if requiring bronchoscopy to improve aeration, most
likely requiring mechanical ventilation. Goals of care ongoing. Trial IV Lasix.
Total time spent on today's encounter was 52 minutes which included time spent in counseling the patient/family regarding diagnosis and treatment plan as listed above, goals of care, and symptom management. Case was discussed with nursing staff,
specialists, and care coordinators/case management. All labs and imaging personally reviewed by me. Remainder the time spent in detailed review of previous records, lab data, imaging, and other medical provider documentation.
Anticipated Discharge: > 48 hours
Subjective/Interval History
-
Date of Service: August 25, 2024
still requiring NIV, hypercarbic
Objective Data
-
Labs:
Laboratory Results
08/25/24 08/25/24 08/25/24
04:23 04:44 05:52
WBC 8.9
Hgb 9.9 L
Hct 34.4 L
Plt Count 269
HCO3 42.9 H* 41.2 H*
Sodium 142
Potassium 5.7 H
Chloride 100
Carbon Dioxide 35 H
BUN 33 H
Creatinine 1.7 H
Glucose 156 H
Calcium 8.9
Total Bilirubin 0.4
AST 18
ALT < 10
Alkaline Phosphatase 29 L
08/25/24
08:36
WBC
Hgb
Hct
Plt Count
HCO3
Sodium
Potassium Pending
Chloride
Carbon Dioxide
BUN
Creatinine
Glucose
Calcium
Total Bilirubin
AST
ALT
Alkaline Phosphatase
Vital Signs:
Vital Signs
Temp Pulse Resp BP Pulse Ox
98.4 F 78 15 124/78 94
08/25/24 11:15 08/25/24 11:24 08/25/24 11:24 08/25/24 10:43 08/25/24 11:24
I&O
08/24/24 08/25/24 08/26/24
06:59 06:59 06:59
Intake Total 240 / 240 650 / 650
Output Total 1050 / 1050 2550 / 2550
Balance -810 / -810 -1900 / -1900
Review of Systems
-
History Source: Patient
All other systems: Not reviewed unless documented
Data Reviewed
-
CT Scan: Report Reviewed by me
MRI: Report Reviewed by me
Labs: Labs Reviewed by me
[2024-08-25 13:56] LABS: Venous Blood Gas B.E. 17.9 mmol/L (-4 to +4); Venous Blood Gas HCO3 45.4 mmol/L (22-27); Venous Blood Gas O2 Sat % 99.3 %; Venous Blood Gas pCO2 70 mmHg (35-48); Venous Blood Gas pH 7.42 (7.32-7.43); Venous Blood Gas pO2 156 mmHg (30-50)
--- NOTE | 2024-08-25 14:24 | PTCARENOTE ---
-Repeat K 5.0
-VBG on been on O2 6L via nasal canula resulted: 7.42/70/156/45.4
-Placed back on AVAPS: /30%/+8 x 1 hours.
- currently patient asleep; BP via left upper arm 139/73; NSR 84 RR 13; 97%
- and other family members at the bedside
--- NOTE | 2024-08-25 15:31 | CHAP ---
Antonio was awake, resting with the mask on. Step-daughter Lexie was present - she shared that [facility]. Zuniga of [facility] came earlier today to anoint Antonio. Patient and family are spiritually strong. Emotional and spiritual support provided.
--- NOTE | 2024-08-25 15:50 | PTCARENOTE ---
On at 14:00 to 15:00 -- AVAPS 16/550/60%/+8 ; Taking off back to 6L via nasal canula HOB elevated
--- NOTE | 2024-08-25 16:00 | PTCARENOTE ---
report from previous nurse received. pt resting in bed, family at bedside. pt AAOx3- forgetful. SR on telemetry heart rate in 90s. pulses palpable. trace lower extremity edema. pt on 6L nasal cannula, sat 98%. lung sounds diminished in bases. active
bowel sounds, abdomen obese round. sequeira draining geoff cloudy urine with sediment. pt and family updated on plan of care. see worklist for full nursing assessment.
--- NOTE | 2024-08-25 19:51 | PTCARENOTE ---
Assumed care of pt. approx 1900.
Maintained on 6L 02 satting 98% spo2. Mentating appropriately. VBG results reviewed, Bipap HS per nurs communication order set, will confer with RT.
Offers no complaints at this time, all questions answered, family bedside, requesting PT/OT consult, will inform ICU MIGDALIA.
Hemodynamically stable, NSR, w.o ectopy noted, normotensive, normothermic.
Hyperkalemia protocol missing accucheck labs throughout day, upon assessment accucheck completed resulting in 153. Will cont. to follow protocol from here.
[2024-08-25 19:54] LABS: Glucose - Point of Care 153 mg/dl (70-99)
--- NOTE | 2024-08-25 20:15 | PTCARENOTE ---
Resp notified via TT to place pt on PAP therapy.
[2024-08-25] MEDS: ROCEPHIN 1000 MG IV (21:23)
[2024-08-25] MEDS: STERILE WATER FOR INJECTION 10 ML IV (21:23)
--- NOTE | 2024-08-25 23:32 | PTCARENOTE ---
Pt. placed on AVAPS per RT. Tolerating well.
No further change in assessment.
[2024-08-26] VITALS (14 sets, daily range): BP systolic 113–146; BP diastolic 67–110; PULSE 2–129; O2SAT 94; BMI 30.3
[2024-08-26 03:35] LABS: B.E. 18.5 mmol/L; PO2 111 mmHg (83-108); pH 7.41 (7.35-7.45)
[2024-08-26 03:43] LABS: PCO2 73 mmHg (35-48)
[2024-08-26 03:44] LABS: HCO3 46.3 mmol/L (21-28)
[2024-08-26 03:46] LABS: Hematocrit 32.9 % (39.0-52.0); Hemoglobin 9.9 g/dL (13.0-18.0); Mean Corp Hgb Conc. 30.1 g/dL (33.0-37.0); Mean Corpuscular Hgb 32.1 pg (27.0-31.0); Mean Corpuscular Volume 106.8 fL (80.0-94.0); Mean Platelet Volume 9.4 fL (7.4-10.4); Platelet Count 292 10^3/uL (130-400); Red Blood Cell Count 3.08 10^6/uL (4.70-6.10); Red Cell Dist. Width 12.5 % (11.5-14.5); White Blood Cell Count 8.9 10^3/uL (4.8-10.8)
--- NOTE | 2024-08-26 03:46 | PTCARENOTE ---
ABG results relayed to ICU MIGDALIA, cont. same tx regiment.
Remains on AVAPS, tolerating well, sp02 98%, mentating appropriately, no signs of visual distress noted.
Liu cath leaking, still draining peach colored urine no sediment noted, ICU MIGDALIA informed --> defer to day team.
[2024-08-26 04:10] LABS: ALT (SGPT) 12 U/L (0-50); AST (SGOT) 18 U/L (17-59); Albumin 3.2 g/dl (3.5-5.0); Alkaline Phosphatase 28 U/L (38-126); Blood Urea Nitrogen 45 mg/dl (9-20); Calcium 8.6 mg/dl (8.4-10.2); Chloride 96 mmol/L (98-107); Estimated Creatinine Clearance 37 ml/min; Glucose 105 mg/dl (70-99); Potassium 4.4 mmol/L (3.5-5.1); Sodium 141 mmol/L (135-145); Total Bilirubin 0.4 mg/dl (0.2-1.3); Total Protein 5.8 g/dl (6.3-8.2); eGFR 40.25
[2024-08-26 04:30] LABS: Carbon Dioxide 40 mmol/L (22-30)
[2024-08-26] MEDS: PULMICORT 0.5 MG INH ×2 (07:47→18:31)
[2024-08-26] MEDS: SODIUM CHLORIDE 3% FOR INHALATION 1 VIAL INH (07:47)
[2024-08-26] MEDS: DUONEB 3 ML INH ×4 (07:47→18:30)
[2024-08-26] MEDS: LASIX 40 MG IV (08:00)
--- NOTE | 2024-08-26 08:10 | W.PN.INTV ---
Today's Communication / Plan
Recommendations
- DC hypertonic saline
- Incentive spirometry, PT/OT, sit in chair as tolerated, increase activity as tolerated
- BiPAP nightly as well as when patient naps
- Patient stable to transfer out of ICU, will place orders for IMU
- Pulmonary service will continue to follow along.
Assessment
-
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 Patient was noted to have
acute kidney injury, hematuria during this admission and had a resection of lateral wall tumor of the bladder suggestive of underlying carcinoma. Today, patient was noted to be hypoxic with decreased mental alertness and urgent critical care
consultation was requested. Patient was evaluated in the intermediate unit where he was noted to be hypoxic which improved with supplemental oxygen as well as increasing EPAP setting on noninvasive ventilation. He was protecting his airways hence
noninvasive ventilation was continued and patient was transferred to the ICU. His mental status significantly improved and he was continued on V60. Chief Lifestyle Officer consultation was requested for further input.
08/26. Patient tolerated AVAPS well overnight. Yesterday during daytime he did well for the most part on nasal cannula and was on BiPAP only for 1 hour.
#1. Acute on chronic hypoxic and hypercapnic respiratory failure.
- Suspect bilateral pleural effusion and bilateral lower lobe atelectasis, more on the right has contributed to further decreased ventilation with worsening hypercapnia. Recent anesthesia with sedation also contributed. pCO2 improved with
noninvasive ventilation
- Continue nasal cannula during daytime and BiPAP nightly as well as when patient naps
- Incentive spirometry, increase activity as tolerated, sit as tolerated.
- Avoid sedating medication.
- Follow-up chest x-ray shows improving atelectasis as well as improving pleural effusions.
- Will discontinue 3% hypertonic saline.
#2. Acute encephalopathy, metabolic, related to CO2 narcosis.
- Patient has baseline compensated hypercapnia around 70s. Likely related to underlying severe COPD as well as suspected sleep apnea
- Acute worsening noted likely related to atelectasis, volume overload as well as recent anesthesia for surgical procedure
- Responded well to noninvasive bilevel ventilation with significant improvement in mental status along with improved CO2.
- Continue bronchodilation, diuresis as well as BIPAP nightly and when napping
- Patient does not like to wear the BiPAP mask which will be an ongoing challenge.
- Follow-up chest x-ray shows improving lower lobe atelectasis with chest physical therapy, positive pressure ventilation as well as hypertonic saline nebulization.
#3. History of Severe COPD with chronic hypercapnia, oxygen dependent. (Spirometry 03/17/2023. FEV1 0.58L, 20% with FEV1/FVC 26)
- Patient does not appear to have active wheezing during exam and current presentation not consistent with COPD exacerbation
- In view of decreased mentation, switched to DuoNeb and budesonide to continue triple therapy for now
- Hold off additional steroids or antibiotics from pulmonary perspective
- Severe underlying centrilobular emphysema
#4. Suspect underlying ESTEFANI.
- Patient has never been diagnosed with sleep apnea however reported increased confusion particularly in the morning noted per family members
- With baseline chronic hypercapnia and acute on chronic worsening this admission, I suspect patient has underlying sleep disordered breathing
- Outpatient sleep study
#5. Bibasilar atelectasis and possibly pleural effusion
- Lower lobe atelectasis improving with hypertonic saline as well as chest PT with positive pressure ventilation
- Chest physical therapy
- Positive pressure ventilation, also incentive spirometry
#6. Suspect heart failure with preserved ejection fraction, acute on chronic.
- Patient noted to have elevated BNP more than 1800 along with bilateral pleural effusions
- Responded well to IV Lasix 40 mg twice daily with improving chest x-ray, will lower dose to 40 mg once a day, likely can be transition to oral in coming days
#7. SUKHWINDER with mild hyperkalemia.
- With hydronephrosis on left side on admission, suspect obstructive uropathy
- Elevated proBNP, bilateral pleural effusion noted, suspect volume overload
- Continue diuresis and monitor
- Acidosis also increases hyperkalemia. Continue Lasix and monitor
other medical diagnoses:
- Left lateral wall bladder mass, consistent with ?cancer, s/p transurethral resection with hematuria and clot retention. Final pathology pending
- Left hydronephrosis
DVT prophylaxis with SCDs
Critical Care time 45 mins -- The patient is admitted for acute critical illness for the treatment of vital organ failure and/or prevention of further life-threatening conditions. Total care includes time spent in review of history, physical exam,
medications, hemodynamic/ventilator parameters, laboratory data, imaging and discussion with house staff, pharmacy, respiratory therapy, religious ritual slaughterer, and nursing.
Subjective Dataa
Subjective Data
Date of Service:
Date of Service: August 26, 2024
Subjective:
Patient awake, alert this morning. No new symptoms reported.
Review of Systems
Genitourinary: Other (All 14 systems reviewed and negative except as stated above in the history of present illness.)
Objective Data
Data Reviewed
Vital Signs / I&O / Oxygen:
Vital Signs
Temp Pulse Resp BP Pulse Ox
98.7 F 91 22 144/84 96
08/26/24 03:06 08/26/24 07:50 08/26/24 07:50 08/26/24 06:00 08/26/24 07:50
Intake and Output
08/25/24 08/26/24 08/27/24
06:59 06:59 06:59
Intake Total 650 / 650 640 / 640
Output Total 2550 / 2550 3600 / 3600
Balance -1900 / -1900 -2960 / -2960
SaO2 [NIV (Non Invasive 97
Ventilation)]
SaO2 96
Nasal Cannula flow liters per 6
minute
Physical Exam
General: Comfortable
HEENT: Normocephalic
Cardiovascular: S1-S2
Respiratory: Clear and Non-Labored Respirations
GI: Soft and Non Distended
Neurology: Awake and Alert
Skin: Warm
Labs/Micro/Reports
Lab Data
08/26/24 03:18
08/26/24 03:18
Laboratory Results
08/26/24
03:18
pH 7.41
pCO2 73 H*
pO2 111 H
HCO3 46.3 H*
O2 Delivery Level
--- NOTE | 2024-08-26 10:33 | W.PN.URO.CBU ---
Today's Communication / Plan
-
Liu out
voiding trial; I& O cath prn
awaiting pathology
Assessment / Plan
-
presumed bladder cancer causing left hydroureteronephrosis due to left lateral wall cancer
hematuria -- resolved
Diagnosis
-
Date of Service: August 26, 2024
-
Patient Diagnosis: gross hematuria and left hydroureteronephrosis due to left lateral wall cancer [ path pending]
Post Op Day: 4 s/p TURBT
Subjective
-
feeling stronger
Objective
-
Vital Signs
Temp Pulse Resp BP Pulse Ox
98.7 F 91 22 144/84 96
08/26/24 03:06 08/26/24 07:50 08/26/24 07:50 08/26/24 06:00 08/26/24 07:50
Intake and Output
08/25/24 08/26/24 08/27/24
06:59 06:59 06:59
Intake Total 650 / 650 640 / 640
Output Total 2550 / 2550 3600 / 3600
Balance -1900 / -1900 -2960 / -2960
Intake:
Oral fluids 650 / 650 640 / 640
IV piggybacks 0 / 0
Output:
Urine, Liu 2350 / 2350 3600 / 3600
Urine, Voided 200 / 200
Laboratory Results
08/26/24 03:18
08/26/24 03:18
Physical Exam
-
General - no acute distress; looks better
Genitalia - Liu with geoff urine
Care Review
Data Reviewed
Discussed with: Nursing
--- NOTE | 2024-08-26 10:35 | PTCARENOTE ---
Received pt awake and alert.Speech is appropriate.+BURR.Denies pain.2 person minimal assist oob to chair.Gait is slightly unsteady.SR with frequent PAC's and PVC's noted.O2 6l NC.Decreased breath sounds with wheezing throughout noted.+
orthopnea,tachypnea and SILVA noted.POX 88-91% Appetite excellent.Smear BM.Liu draining yellow urine and was discontinued at 1025 as per MD order.Skin integrity as documented.Plan of care discussed with pt.
--- NOTE | 2024-08-26 11:28 | W.PN.HOSP.TC ---
Today's Communication/Plan
-
PT/OT
TOV
possible d/c in AM
Assessment / Plan
Assessment / Plan
79yo M with PMHx of bladder CA, RCC, COPD with chronic hypocix respiratory failure on 6L home O2 came after falling at home, concerned for UTI, later found bladder mass with hematuria, initiated on CBI also found L hydro with obstructive uropathy,
probably caused by mass and eventually underwent TURBT on 08/22/24, developed orsening hypoxia after intervetion that later improved. TOV started on 08/26/24
A/P:
#Acute on chronic hypoxic hypercapnic respiratory failure
#Suspected CHF, unspecified
2/2 deconditioning during procedure, atelectasis, poor respiratory effort, overhydration
resolved back to 6L home O2
cont home bronchodilators
On IV Lasix - plan short course, NT-proBNP slightly elevated >1800
Echo on 08/14/23: Normal biventricular size and systolic function without regional wall motion abnormality. Cardiology recommended to repeat
XR with tiny b/l pleural effusions vs atelectasis - incentive spirometer
#Acute toxic metabolic encephalopathy 2/2 hypercarbia
Resolved
#ESTEFANI
outpatient sleep study as per pulm
#Urinary bladder mass with acute urinary retention and L hydronephrosis, UTI
completed ceftriaxone
s/p TURBT by urology, pending path
TOV on 08/26/24
#Anemia
follow CBC
#SUKHWINDER, suspect development CKD stage 3b
follow Cr - baseline around 1.7 now
DVT ppx SCDs (2/2 hematuria)
DNR/DNI
I have spent at least 36min reviewing chart, test results, communication with consultants and providing direct patient care
Anticipated Discharge: Within 24 hours
Subjective/Interval History
-
Date of Service: August 26, 2024
Objective Data
-
Labs:
Laboratory Results
08/26/24
03:18
WBC 8.9
Hgb 9.9 L
Hct 32.9 L
Plt Count 292
HCO3 46.3 H*
Sodium 141
Potassium 4.4
Chloride 96 L
Carbon Dioxide 40 H
BUN 45 H
Creatinine 1.7 H
Glucose 105 H
Calcium 8.6
Total Bilirubin 0.4
AST 18
ALT 12
Alkaline Phosphatase 28 L
Vital Signs:
Vital Signs
Temp Pulse Resp BP Pulse Ox
98.7 F 112 20 144/84 92
08/26/24 03:06 08/26/24 11:23 08/26/24 11:23 08/26/24 06:00 08/26/24 11:23
I&O
08/25/24 08/26/24 08/27/24
06:59 06:59 06:59
Intake Total 650 / 650 640 / 640
Output Total 2550 / 2550 3600 / 3600
Balance -1900 / -1900 -2960 / -2960
Review of Systems
-
History Source: Patient
All other systems: Reviewed and negative
Physical Exam
-
General: No Apparent Distress
HEENT: Normocephalic
Neuro: Awake, Alert, Oriented and AO x 3
Psych: Calm
--- NOTE | 2024-08-26 12:41 | PTCARENOTE ---
Pt assessed.No change in assessment noted.
--- NOTE | 2024-08-26 12:41 | PTCARENOTE ---
Pt assessed.No change in assessment.Sitting oob in chair.Family at bedside.Voiding yellow urine in urinal.
--- NOTE | 2024-08-26 14:47 | CM ---
Met with patient at bedside; IMM benefit explained; form signed @ [id number]
--- NOTE | 2024-08-26 14:47 | PTCARENOTE ---
Report given to 3 Acute RN.
--- NOTE | 2024-08-26 16:05 | CM ---
Met with patient and spoke to extended family in room and on speaker phone. Discussed need for SNf rehab per PT notes.
Family worried about monitoring his O 2 levels in SNF. Respiratory therapist in to check O 2 when he stood up to use urinal. destats and respiratory recommends he may need up to 10 liters of oxygen when he does PT.
Discussed snf options . referrals made to [facility]
[2024-08-26] MEDS: TYLENOL 650 MG PO ×2 (16:38→23:57)
[2024-08-26] MEDS: LOPRESSOR 25 MG PO (20:11)
[2024-08-27] VITALS (9 sets, daily range): BP systolic 114–146; BP diastolic 59–77; PULSE 2–89; O2SAT 95; BMI 29.6
[2024-08-27 06:23] LABS: Hematocrit 32.9 % (39.0-52.0); Hemoglobin 9.7 g/dL (13.0-18.0); Mean Corp Hgb Conc. 29.5 g/dL (33.0-37.0); Mean Corpuscular Hgb 31.9 pg (27.0-31.0); Mean Corpuscular Volume 108.2 fL (80.0-94.0); Mean Platelet Volume 9.6 fL (7.4-10.4); Platelet Count 290 10^3/uL (130-400); Red Blood Cell Count 3.04 10^6/uL (4.70-6.10); Red Cell Dist. Width 12.6 % (11.5-14.5); White Blood Cell Count 8.3 10^3/uL (4.8-10.8)
[2024-08-27 06:35] LABS: ALT (SGPT) 11 U/L (0-50); AST (SGOT) 18 U/L (17-59); Albumin 3.2 g/dl (3.5-5.0); Alkaline Phosphatase 34 U/L (38-126); Blood Urea Nitrogen 48 mg/dl (9-20); Calcium 8.6 mg/dl (8.4-10.2); Chloride 95 mmol/L (98-107); Estimated Creatinine Clearance 35 ml/min; Glucose 110 mg/dl (70-99); Potassium 4.1 mmol/L (3.5-5.1); Sodium 142 mmol/L (135-145); Total Bilirubin 0.4 mg/dl (0.2-1.3); Total Protein 5.9 g/dl (6.3-8.2); eGFR 37.58
[2024-08-27 07:01] LABS: Carbon Dioxide 44 mmol/L (22-30)
[2024-08-27 07:20] LABS: NT-proBNP 854 pg/ml
[2024-08-27] MEDS: DUONEB 3 ML INH ×4 (07:24→19:26)
[2024-08-27] MEDS: PULMICORT 0.5 MG INH (07:24)
--- NOTE | 2024-08-27 08:05 | W.PN.URO.CBU ---
Today's Communication / Plan
-
awaiting bladder pathology
Assessment / Plan
-
presumed bladder cancer causing left hydroureteronephrosis due to left lateral wall cancer
hematuria -- resolved
Diagnosis
-
Date of Service: August 27, 2024
-
Patient Diagnosis: gross hematuria and left hydroureteronephrosis due to left lateral wall cancer [ path pending]
Post Op Day: 5 s/p TURBT
Subjective
-
voiding since Liu removed -- bladder scanned for ~ 199 ml volume
Objective
-
Vital Signs
Temp Pulse Resp BP Pulse Ox
97.5 F 86 18 119/75 97
08/27/24 03:01 08/27/24 07:25 08/27/24 07:25 08/27/24 03:01 08/27/24 07:25
Intake and Output
08/26/24 08/27/24 08/28/24
06:59 06:59 06:59
Intake Total 640 / 640 1680 / 1680
Output Total 3600 / 3600 2350 / 2350
Balance -2960 / -2960 -670 / -670
Intake:
Oral fluids 640 / 640 1680 / 1680
IV piggybacks 0 / 0
Output:
Urine, Liu 3600 / 3600 750 / 750
Urine, Voided 1600 / 1600
Laboratory Results
08/27/24 05:29
08/27/24 05:29
Physical Exam
-
General - well developed, well nourished, no acute distress
Chest - clear bilaterally
Abdomen - soft, non-tender, positive bowel sounds, no CVAT, no incisional pain or distention
Genitalia - normal
Rectal - normal
Skin - warm & dry with no rash
Neuro - AOx3, no motor deficits
Extremities - no clubbing, no cyanosis, no edema
Incision - clean, dry
Dressing - clean, dry, intact
[2024-08-27] MEDS: LOPRESSOR 25 MG PO ×2 (08:21→19:53)
--- NOTE | 2024-08-27 09:36 | W.PN.HOSP.TC ---
Today's Communication/Plan
-
pending Echo
Stop Lasix
start ICS/LABA
CM for rehab
Assessment / Plan
Assessment / Plan
79yo M with PMHx of bladder CA, RCC, COPD with chronic hypocix respiratory failure on 6L home O2 came after falling at home, concerned for UTI, later found bladder mass with hematuria, initiated on CBI also found L hydro with obstructive uropathy,
probably caused by mass and eventually underwent TURBT on 08/22/24, developed orsening hypoxia after intervetion that later improved. TOV started on 08/26/24
A/P:
#Acute on chronic hypoxic hypercapnic respiratory failure
#Suspected CHF, unspecified
2/2 deconditioning during procedure, atelectasis, poor respiratory effort, overhydration
resolved back to 6L home O2
cont home bronchodilators
On IV Lasix - plan short course, NT-proBNP slightly elevated >1800, decreased to 800 with Lasix
Echo on 08/14/23: Normal biventricular size and systolic function without regional wall motion abnormality. Cardiology recommended to repeat
XR with tiny b/l pleural effusions vs atelectasis - incentive spirometer
LABA/ISC
#Acute toxic metabolic encephalopathy 2/2 hypercarbia
Resolved
#ESTEFANI
outpatient sleep study as per pulm
#Urinary bladder mass with acute urinary retention and L hydronephrosis, UTI
completed ceftriaxone on 08/27/24, Ucx - no growth
s/p TURBT by urology, pending path
TOV on 08/26/24
#Anemia
follow CBC
#SUKHWINDER, suspect development CKD stage 3b
follow Cr - baseline around 1.7 now
DVT ppx SCDs (2/2 hematuria)
DNR/DNI
I have spent at least 56min reviewing chart, test results, communication with consultants and providing direct patient care
Anticipated Discharge: Within 24 hours
Subjective/Interval History
-
Date of Service: August 27, 2024
Objective Data
-
Labs:
Laboratory Results
08/27/24
05:29
WBC 8.3
Hgb 9.7 L
Hct 32.9 L
Plt Count 290
Sodium 142
Potassium 4.1
Chloride 95 L
Carbon Dioxide 44 H
BUN 48 H
Creatinine 1.8 H
Glucose 110 H
Calcium 8.6
Total Bilirubin 0.4
AST 18
ALT 11
Alkaline Phosphatase 34 L
Vital Signs:
Vital Signs
Temp Pulse Resp BP Pulse Ox
98.3 F 86 22 146/77 100
08/27/24 08:05 08/27/24 08:21 08/27/24 08:05 08/27/24 08:21 08/27/24 08:05
I&O
08/26/24 08/27/24 08/28/24
06:59 06:59 06:59
Intake Total 640 / 640 1680 / 1680
Output Total 3600 / 3600 2350 / 2350
Balance -2960 / -2960 -670 / -670
Review of Systems
-
History Source: Patient
All other systems: Reviewed and negative
Physical Exam
-
General: No Apparent Distress
HEENT: Normocephalic
Respiratory: Wheezes
GI: Soft and Nondistended
Skin: Warm
Neuro: Awake, Alert, Oriented and AO x 3
Psych: Calm
--- NOTE | 2024-08-27 11:05 | W.PN.PUL3 ---
Today's Communication / Plan
-
Continue BiPAP as needed and nightly
Target saturation 90 to 92%
Avoid sedation
Mechanical DVT prophylaxis
Would benefit from NIV at rehab at the facility
Continue DuoNelisa, Symbicort
Assessment
-
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 Patient was noted to have
acute kidney injury, hematuria during this admission and had a resection of lateral wall tumor of the bladder suggestive of underlying carcinoma. Today, patient was noted to be hypoxic with decreased mental alertness and urgent critical care
consultation was requested. Patient was evaluated in the intermediate unit where he was noted to be hypoxic which improved with supplemental oxygen as well as increasing EPAP setting on noninvasive ventilation. He was protecting his airways hence
noninvasive ventilation was continued and patient was transferred to the ICU. His mental status significantly improved and he was continued on V60. Forestry Extension Specialist consultation was requested for further input.
08/27. Patient tolerated BiPAP. When machine comes off, mask comes off, desaturates to 65%. 97% on 6 L this morning
#1. Acute on chronic hypoxic and hypercapnic respiratory failure.
- Suspect bilateral pleural effusion and bilateral lower lobe atelectasis, more on the right has contributed to further decreased ventilation with worsening hypercapnia. Recent anesthesia with sedation also contributed. pCO2 improved with
noninvasive ventilation
- Continue nasal cannula during daytime and BiPAP nightly as well as when patient naps. Target saturation 90 to 92%
- Incentive spirometry, increase activity as tolerated, sit as tolerated.
- Avoid sedating medication.
- Follow-up chest x-ray shows improving atelectasis as well as improving pleural effusions.
- Continue BiPAP.
#2. Acute encephalopathy, metabolic, related to CO2 narcosis.
- Patient has baseline compensated hypercapnia around 70s. Likely related to underlying severe COPD as well as suspected sleep apnea
- Acute worsening noted likely related to atelectasis, volume overload as well as recent anesthesia for surgical procedure
- Responded well to noninvasive bilevel ventilation with significant improvement in mental status along with improved CO2.
- Continue bronchodilation, diuresis as well as BIPAP nightly and when napping
- Patient does not like to wear the BiPAP mask which will be an ongoing challenge. Desaturated to 65% overnight when takes mask off
- Follow-up chest x-ray shows improving lower lobe atelectasis with chest physical therapy, positive pressure ventilation as well as hypertonic saline nebulization.
#3. History of Severe COPD with chronic hypercapnia, oxygen dependent. (Spirometry 03/17/2023. FEV1 0.58L, 20% with FEV1/FVC 26)
- Patient does not appear to have active wheezing during exam and current presentation not consistent with COPD exacerbation
- In view of decreased mentation, switched to DuoNeb and budesonide to continue triple therapy for now
- Hold off additional steroids or antibiotics from pulmonary perspective
- Severe underlying centrilobular emphysema
#4. Suspect underlying ESTEFANI.
- Patient has never been diagnosed with sleep apnea however reported increased confusion particularly in the morning noted per family members. This is a new process over the last few weeks, likely partially related to renal issues, infection
- With baseline chronic hypercapnia and acute on chronic worsening this admission, I suspect patient has underlying sleep disordered breathing
- Outpatient sleep study may be considered. Would continue NIV during rehabilitation
#5. Bibasilar atelectasis and possibly pleural effusion
- Lower lobe atelectasis improving with hypertonic saline as well as chest PT with positive pressure ventilation
- Chest physical therapy
- Positive pressure ventilation, also incentive spirometry
#6. Suspect heart failure with preserved ejection fraction, acute on chronic.
- Patient noted to have elevated BNP more than 1800 along with bilateral pleural effusions
- Responded well to IV Lasix 40 mg twice daily with improving chest x-ray, will lower dose to 40 mg once a day, likely can be transition to oral in coming days
#7. SUKHWINDER with mild hyperkalemia.
- With hydronephrosis on left side on admission, suspect obstructive uropathy
- Elevated proBNP, bilateral pleural effusion noted, suspect volume overload
- Continue diuresis and monitor
- Acidosis also increases hyperkalemia. Continue Lasix and monitor
other medical diagnoses:
- Left lateral wall bladder mass, consistent with ?cancer, s/p transurethral resection with hematuria and clot retention. Final pathology pending
- Left hydronephrosis
DVT prophylaxis with SCDs due to hematuria
Patient is DNR
Reviewed above with patient, significant other and daughter at bedside
All questions answered
Subjective Data
-
Date of Service:
Date of Service: August 27, 2024
Subjective:
Patient sitting in chair, appears to be comfortable. He denies palpitations, lightheadedness, dizziness, chest pain, significant cough, significant shortness of breath. Family members at bedside including significant other. They feel his mental
status is improved but still very fatigued and sleepy during the day
Objective Data
Data Reviewed
Vital Signs / I&O / Oxygen:
Vital Signs
Temp Pulse Resp BP Pulse Ox
98.3 F 86 22 146/77 100
08/27/24 08:05 08/27/24 08:21 08/27/24 08:05 08/27/24 08:21 08/27/24 08:05
Intake and Output
08/26/24 08/27/24 08/28/24
06:59 06:59 06:59
Intake Total 640 / 640 1680 / 1680
Output Total 3600 / 3600 2350 / 2350
Balance -2960 / -2960 -670 / -670
SaO2 [NIV (Non Invasive 97
Ventilation)]
SaO2 100
Nasal Cannula flow liters per 6
minute
Physical Exam
General: Comfortable
HEENT: Normocephalic and Anicteric
Cardiovascular: S1-S2, Regular Rhythm and Murmur (n)
Respiratory: Wheeze (n), Crackles (n), Rhonchi, Stridor (n) and Other (Decreased breath sounds, bronchial)
GI: Soft, Non Distended and Non Tender
Neurology: Awake, Alert, Oriented (He is oriented x 3) and No Motor Deficits (Moves extremities, follows commands.)
Skin: Cyanosis, Jaundice (n) and Rash
Labs/Micro/Reports
Lab Data
08/27/24 05:29
08/27/24 05:29
[2024-08-27] MEDS: SYMBICORT 160/4.5 MCG INHALER 2 PUFF INH ×2 (11:45→19:26)
--- NOTE | 2024-08-27 12:00 | CM ---
Addendum entered by Maricruz Porter 08/27/24 14:56:
[facility] is unable to accept for admission this evening, as they cannot obtain BiPap in time.
Plan for discharge to [facility] via ambulance tomorrow pending medical clearance.
CM spoke with Antonio's daughter, Denise, to make her aware of bed availability for tomorrow. Ambulance transport being arranged for tomorrow late morning.
Original Note:
CM spoke with Antonio's daughter, Denise Hamilton, several times today. Pt has been accepted for transfer to [facility]; Antonio has been on bipap, but tends to take it off resulting in O2 desaturation. He has not been on cpap/bipap at home per his daughter.
Plan: CM to follow for transfer to [facility] when medically ready and insurance authorization has been obtained.
[2024-08-28 03:20] VITALS: BP 114/60
[2024-08-28 06:00] VITALS: BMI 29.0
[2024-08-28 06:37] LABS: Hematocrit 34.9 % (39.0-52.0); Hemoglobin 9.9 g/dL (13.0-18.0); Mean Corp Hgb Conc. 28.4 g/dL (33.0-37.0); Mean Corpuscular Hgb 31.5 pg (27.0-31.0); Mean Corpuscular Volume 111.1 fL (80.0-94.0); Mean Platelet Volume 9.4 fL (7.4-10.4); Platelet Count 266 10^3/uL (130-400); Red Blood Cell Count 3.14 10^6/uL (4.70-6.10); Red Cell Dist. Width 12.6 % (11.5-14.5); White Blood Cell Count 8.3 10^3/uL (4.8-10.8)
[2024-08-28 06:38] LABS: ALT (SGPT) 10 U/L (0-50); AST (SGOT) 17 U/L (17-59); Albumin 3.1 g/dl (3.5-5.0); Alkaline Phosphatase 28 U/L (38-126); Blood Urea Nitrogen 46 mg/dl (9-20); Calcium 8.4 mg/dl (8.4-10.2); Chloride 97 mmol/L (98-107); Estimated Creatinine Clearance 35 ml/min; Glucose 106 mg/dl (70-99); Potassium 4.8 mmol/L (3.5-5.1); Sodium 142 mmol/L (135-145); Total Bilirubin 0.3 mg/dl (0.2-1.3); Total Protein 5.8 g/dl (6.3-8.2); eGFR 37.58
[2024-08-28 06:48] LABS: Carbon Dioxide 39 mmol/L (22-30)
[2024-08-28 07:35] VITALS: BP 117/57
[2024-08-28] MEDS: LOPRESSOR 25 MG PO (07:48)
[2024-08-28] MEDS: SYMBICORT 160/4.5 MCG INHALER 2 PUFF INH (08:07)
[2024-08-28] MEDS: DUONEB 3 ML INH ×2 (08:07→11:43)
--- NOTE | 2024-08-28 09:43 | CM ---
Addendum entered by Maricruz Porter 08/28/24 10:28:
Transport time is 1:30 pm today. [facility] notified of same.
Original Note:
Pt is ready for discharge to [facility] [place] today. Ambulance transport requested for 11am shredder picker. Dr. Gonsales notified and agrees with transport time.
spoke with pt's daughter, Denise, who is on her way to the hospital. [facility] reviewed with Denise and she agrees with discharge. Copy of IMM provided.
Plan: Transfer to [facility] [place] today; 11am shredder picker requested.
[facility] Report: [phone]
[facility]
--- NOTE | 2024-08-28 10:04 | W.PN.HOSP.TC ---
Today's Communication/Plan
-
dc
Assessment / Plan
Assessment / Plan
79yo M with PMHx of bladder CA, RCC, COPD with chronic hypoxic respiratory failure on 6L home O2 came after falling at home, concerned for UTI, later found bladder mass with hematuria, initiated on CBI also found L hydro with obstructive uropathy,
probably caused by mass and eventually underwent TURBT on 08/22/24, developed worsening hypoxia after intervention that later improved. TOV started on 08/26/24, which patient passed. Will have to follow up with urologist as outpatient for results of
the pathology and further treatment. Echo without clinically significant valvular pathology, no wall motion abnormalities and with preserved EF. Remained on baseline O2 6L on the day of D/C without new complains. Medically stable to be d/c to STR.
BMP and nephrology as outpatient
A/P:
#Acute on chronic hypoxic hypercapnic respiratory failure
#Suspected CHF, unspecified
2/2 deconditioning during procedure, atelectasis, poor respiratory effort, overhydration
resolved back to 6L home O2
cont home bronchodilators
On IV Lasix - plan short course, NT-proBNP slightly elevated >1800, decreased to 800 with Lasix
Echo on 08/14/23: Normal biventricular size and systolic function without regional wall motion abnormality. Cardiology recommended to repeat
XR with tiny b/l pleural effusions vs atelectasis - incentive spirometer
LABA/ISC
#Acute toxic metabolic encephalopathy 2/2 hypercarbia
Resolved
#ESTEFANI
outpatient sleep study as per pulm
#Urinary bladder mass with acute urinary retention and L hydronephrosis, UTI
completed ceftriaxone on 08/27/24, Ucx - no growth
s/p TURBT by urology, pending path
TOV on 08/26/24
#Anemia
follow CBC
#SUKHWINDER, suspect development CKD stage 3b
follow Cr - baseline around 1.7 now
DVT ppx SCDs (2/2 hematuria)
DNR/DNI
I have spent at least 36min reviewing chart, test results, communication with consultants and providing direct patient care
Anticipated Discharge: Today
Subjective/Interval History
-
Date of Service: August 28, 2024
Objective Data
-
Labs:
Laboratory Results
08/28/24 08/28/24
05:39 05:40
WBC 8.3
Hgb 9.9 L
Hct 34.9 L
Plt Count 266
Sodium 142
Potassium 4.8
Chloride 97 L
Carbon Dioxide 39 H
BUN 46 H
Creatinine 1.8 H
Glucose 106 H
Calcium 8.4
Total Bilirubin 0.3
AST 17
ALT 10
Alkaline Phosphatase 28 L
Vital Signs:
Vital Signs
Temp Pulse Resp BP Pulse Ox
98.6 F 76 18 117/57 92
08/28/24 07:35 08/28/24 07:48 08/28/24 08:13 08/28/24 07:48 08/28/24 08:13
I&O
08/27/24 08/28/24 08/29/24
06:59 06:59 06:59
Intake Total 1680 / 1680 1320 / 1320
Output Total 2350 / 2350 550 / 550
Balance -670 / -670 770 / 770
Review of Systems
-
History Source: Patient
All other systems: Reviewed and negative
Physical Exam
-
General: No Apparent Distress
HEENT: Normocephalic
Respiratory: Clear to Auscultation
GI: Soft, Nontender and Nondistended
Skin: Warm
Neuro: Awake, Alert, Oriented and AO x 3
Psych: Calm
--- NOTE | 2024-08-28 10:13 | W.DCSUMMARY ---
Discharge Summary
Discharge Data
Date of Admission: 08/19/24
Date of Discharge: 08/28/24
-
Pending Results: Yes
Additional Pending Results:
pathology from bladder
Hospital Course
79yo M with PMHx of bladder CA, RCC, COPD with chronic hypoxic respiratory failure on 6L home O2 came after falling at home, concerned for UTI, later found bladder mass with hematuria, initiated on CBI also found L hydro with obstructive uropathy,
probably caused by mass and eventually underwent TURBT on 08/22/24, developed worsening hypoxia after intervention that later improved. TOV started on 08/26/24, which patient passed. Will have to follow up with urologist as outpatient for results of
the pathology and further treatment. Echo without clinically significant valvular pathology, no wall motion abnormalities and with preserved EF. Remained on baseline O2 6L on the day of D/C without new complains. Medically stable to be d/c to STR.
BMP and nephrology as outpatient. Started on ASA and Lipitor with signs of ASCVD on CT
I have spent at least 36min reviewing chart, test results, communication with consultants and providing direct patient care
Patient was managed for:
#Acute on chronic hypoxic hypercapnic respiratory failure
#Volume overload without CHF
#Acute toxic metabolic encephalopathy 2/2 hypercarbia
#ESTEFANI
#Urinary bladder mass with acute urinary retention and L hydronephrosis, UTI
#Anemia
#SUKHWINDER, suspect development CKD stage 3b
#lobulated low-density lesion of pancreas - benign as per CT
#Liver cysts
#DJD
#ASCVD
Discharge Plan
-
Patient Disposition: Group Home/SNF
Discharge Diagnosis/Procedures: Bladder mass
Diet: No added salt
Blood Work: BMP in 1 week upon discharge
Referrals:
Cielo Bloom MD [Active] - in one to two months (Sleep study)
Enio Nieto CRNP [Family Provider] -
Som Ken MD [Active] - (Call dr epps [phone] to discuss plan of action and if sequeira then how to proceed)
Celine Romero MD [Active] - in one to two weeks (CKD)
Prescriptions:
New
ipratropium-albuterol 0.5 mg-3 mg(2.5 mg base)/3 mL Solution For Nebulization
3 ml inhalation R Q4HPRN PRN (Reason: wheezing) Qty: 90 0RF
metoprolol tartrate 25 mg Tablet
25 mg PO BID Qty: 60 0RF
budesonide-formoterol [Symbicort] 160-4.5 mcg/actuation Hfa Aerosol Inhaler
2 puff inhalation R BID Qty: 10.2 0RF
aspirin 81 mg tablet
81 mg PO DAILY Qty: 30 0RF
atorvastatin 10 mg tablet
10 mg PO DAILY Qty: 30 0RF
Discharge Orders:
Discharge Patient (As Directed); Ordered 08/28/24
Ordered By: Addison Gonsales
Discharge Date and Time
Print Language: SYRIAC
[2024-08-28 10:48] VITALS: BP 121/54
--- NOTE | 2024-08-28 11:08 | W.PN.PUL3 ---
Today's Communication / Plan
-
Plan to continue BiPAP while at rehabilitation, maintain current settings
Continue DuoNebs, budesonide postdischarge. Discontinue Symbicort
Recommend mechanical prophylaxis, Pedro stockings while at rehab and at home
Maintain saturation greater than 88%
Follow-up information left in chart
Disposition efforts
Assessment
-
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 Patient was noted to have
acute kidney injury, hematuria during this admission and had a resection of lateral wall tumor of the bladder suggestive of underlying carcinoma. Today, patient was noted to be hypoxic with decreased mental alertness and urgent critical care
consultation was requested. Patient was evaluated in the intermediate unit where he was noted to be hypoxic which improved with supplemental oxygen as well as increasing EPAP setting on noninvasive ventilation. He was protecting his airways hence
noninvasive ventilation was continued and patient was transferred to the ICU. His mental status significantly improved and he was continued on V60. [employer] consultation was requested for further input.
08/27. Patient tolerated BiPAP. When machine comes off, mask comes off, desaturates to 65%. 97% on 6 L this morning
#1. Acute on chronic hypoxic and hypercapnic respiratory failure.
- Suspect bilateral pleural effusion and bilateral lower lobe atelectasis, more on the right has contributed to further decreased ventilation with worsening hypercapnia. Recent anesthesia with sedation also contributed. pCO2 improved with
noninvasive ventilation
- Continue nasal cannula during daytime and BiPAP nightly as well as when patient naps. Target saturation 90 to 92%
- Incentive spirometry, increase activity as tolerated, sit as tolerated.
- Avoid sedating medication.
- Follow-up chest x-ray shows improving atelectasis as well as improving pleural effusions.
- Continue BiPAP. Would continue BiPAP while at rehabilitation. Unfortunate did not use it yesterday p.m.
- Presently on 6 L, 92%
#2. Acute encephalopathy, metabolic, related to CO2 narcosis.
- Patient has baseline compensated hypercapnia around 70s. Likely related to underlying severe COPD as well as suspected sleep apnea
- Acute worsening noted likely related to atelectasis, volume overload as well as recent anesthesia for surgical procedure
- Responded well to noninvasive bilevel ventilation with significant improvement in mental status along with improved CO2.
- Continue bronchodilation, diuresis as well as BIPAP nightly and when napping
- Patient does not like to wear the BiPAP mask which will be an ongoing challenge. Desaturated to 65% overnight when takes mask off
- Follow-up chest x-ray shows improving lower lobe atelectasis with chest physical therapy, positive pressure ventilation as well as hypertonic saline nebulization.
#3. History of Severe COPD with chronic hypercapnia, oxygen dependent. (Spirometry 03/17/2023. FEV1 0.58L, 20% with FEV1/FVC 26)
- Patient does not appear to have active wheezing during exam and current presentation not consistent with COPD exacerbation
- In view of decreased mentation, switched to DuoNeb and budesonide to continue triple therapy for now
- Hold off additional steroids or antibiotics from pulmonary perspective
- Severe underlying centrilobular emphysema
#4. Suspect underlying ESTEFANI.
- Patient has never been diagnosed with sleep apnea however reported increased confusion particularly in the morning noted per family members. This is a new process over the last few weeks, likely partially related to renal issues, infection
- With baseline chronic hypercapnia and acute on chronic worsening this admission, I suspect patient has underlying sleep disordered breathing
- Outpatient sleep study may be considered. Would continue NIV during rehabilitation
#5. Bibasilar atelectasis and possibly pleural effusion
- Lower lobe atelectasis improving with hypertonic saline as well as chest PT with positive pressure ventilation
- Chest physical therapy
- Positive pressure ventilation, also incentive spirometry
#6. Suspect heart failure with preserved ejection fraction, acute on chronic.
- Patient noted to have elevated BNP more than 1800 along with bilateral pleural effusions
- Responded well to IV Lasix 40 mg twice daily with improving chest x-ray, will lower dose to 40 mg once a day, likely can be transition to oral in coming days
#7. SUKHWINDER with mild hyperkalemia.
- With hydronephrosis on left side on admission, suspect obstructive uropathy
- Elevated proBNP, bilateral pleural effusion noted, suspect volume overload
- Continue diuresis and monitor
- Acidosis also increases hyperkalemia. Continue Lasix and monitor
other medical diagnoses:
- Left lateral wall bladder mass, consistent with ?cancer, s/p transurethral resection with hematuria and clot retention. Final pathology pending
- Left hydronephrosis
DVT prophylaxis with SCDs due to hematuria
Patient is DNR
Reviewed above with patient, significant other and daughter at bedside on 08/27
All questions answered
Follow-up instructions left in chart
Subjective Data
-
Date of Service:
Date of Service: August 28, 2024
Subjective:
Patient is feeling well. Eating breakfast. Denies any chest pain. Has mild dry cough, denies nausea, abdominal pain. Appears to be in good spirits. Feels his breathing is at baseline while at rest
Objective Data
Data Reviewed
Vital Signs / I&O / Oxygen:
Vital Signs
Temp Pulse Resp BP Pulse Ox
99.2 F 63 16 121/54 97
08/28/24 10:48 08/28/24 10:48 08/28/24 10:48 08/28/24 10:48 08/28/24 10:48
Intake and Output
08/27/24 08/28/24 08/29/24
06:59 06:59 06:59
Intake Total 1680 / 1680 1320 / 1320
Output Total 2350 / 2350 550 / 550
Balance -670 / -670 770 / 770
SaO2 [NIV (Non Invasive 97
Ventilation)]
SaO2 97
Nasal Cannula flow liters per 6
minute
Physical Exam
General: Comfortable
HEENT: Normocephalic and Anicteric
Cardiovascular: S1-S2, Regular Rhythm and Murmur (n)
Respiratory: Wheeze (n), Crackles (n), Rhonchi, Stridor (n) and Other (Decreased breath sounds, bronchial)
GI: Soft, Non Distended and Non Tender
Neurology: Awake, Alert, Oriented (He is oriented x 3) and No Motor Deficits (Moves extremities, follows commands.)
Skin: Cyanosis, Jaundice (n) and Rash
Labs/Micro/Reports
Lab Data
08/28/24 05:39
08/28/24 05:40
--- NOTE | 2024-08-28 15:56 | PTCARENOTE ---
Pt d/c at 1330 via EMS to [facility], daughters with him at bedside and brought all stuff home. Pt transferred with 6liters of O2, heart monitor taken off, IV taken out, and discharge packet given and discussed.
== END 2024-08-28 13:40 | DRG 668 ==
LOC: 3 WEST ACU 21:40
PROVIDERS: Internal Medicine; Nurse Practitioner Family; Nurse Practitioner Primary Care; ADMITTING PHYSICIAN Hospitalist; ATTENDING PHYSICIAN Internal Medicine; CONSULT PHYSICIAN Internal Medicine; CONSULT PHYSICIAN Internal Medicine Cardiovascular Disease; CONSULT PHYSICIAN Specialist; EMERGENCY PHYSICIAN Emergency Medicine; FAMILY PHYSICIAN Nurse Practitioner Family; OTHER PHYSICIAN Psychiatry & Neurology Clinical Neurophysiology
PROC: 0TBB8ZZ Excision of Bladder, Via Natural or Artificial Opening Endoscopic (ICD-10-PCS; 2024-08-22)
PROC: 0TCB8ZZ Extirpation of Matter from Bladder, Via Natural or Artificial Opening Endoscopic (ICD-10-PCS; 2024-08-22)
PROC: 5A09357 Assistance with Respiratory Ventilation, Less than 24 Consecutive Hours, Continuous Positive Airway Pressure (ICD-10-PCS; 2024-08-23)
DX: C67.9 Malignant neoplasm of bladder, unspecified (principal); G92.8 Other toxic encephalopathy; J96.22 Acute and chronic respiratory failure with hypercapnia; J96.21 Acute and chronic respiratory failure with hypoxia; N13.6 Pyonephrosis; N17.9 Acute kidney failure, unspecified; R47.01 Aphasia; E87.3 Alkalosis; J98.11 Atelectasis; I50.32 Chronic diastolic (congestive) heart failure; R53.1 Weakness; N32.3 Diverticulum of bladder; R59.1 Generalized enlarged lymph nodes; N21.0 Calculus in bladder; E87.5 Hyperkalemia; N13.9 Obstructive and reflux uropathy, unspecified; N32.89 Other specified disorders of bladder; I25.10 Atherosclerotic heart disease of native coronary artery without angina pectoris; M19.90 Unspecified osteoarthritis, unspecified site; K86.9 Disease of pancreas, unspecified; K76.89 Other specified diseases of liver; R31.0 Gross hematuria; G47.33 Obstructive sleep apnea (adult) (pediatric); D64.9 Anemia, unspecified; J43.2 Centrilobular emphysema; W18.39XA Other fall on same level, initial encounter; Y93.01 Activity, walking, marching and hiking; Y92.009 Unspecified place in unspecified non-institutional (private) residence as the place of occurrence of the external cause; Z66 Do not resuscitate; Z87.440 Personal history of urinary (tract) infections; Z85.51 Personal history of malignant neoplasm of bladder; Z87.891 Personal history of nicotine dependence; Z85.528 Personal history of other malignant neoplasm of kidney; Z99.81 Dependence on supplemental oxygen; Z90.5 Acquired absence of kidney
CPT/HCPCS: 88307; 88332; 36600; 70450; 70553; 71045; 74176; 80048; 80053; 80202; 81003; 81015; 82550; 82805; 82962; 83735; 83880; 84132; 84300; 85014; 85018; 85025; 85027; 86850; 86900; 86901; 87086; 88331; 93005; 93306; 93970; 94640; 94660; 97116; 97163; 97166; 97530; 99285; A9575